=== PATIENT | female | born 1970 | race Caucasian/White ===

== ENCOUNTER 2020-01-17 11:25 | Emergency (ER) | payer OTHER, SELFPAY ==
[2020-01-17 11:36] VITALS: BP 104/76; PULSE 93; RESP 14; TEMP 36.8; O2SAT 100
--- NOTE | 2020-01-17 12:01 | ECG_ITS ---
Measurements Intervals [place] Rate: 81 P: 59 [place]: 130 QRS: 83 QRSD: 98 T: 63 QT: 407 QTc: 473 Interpretive Statements SINUS RHYTHM INCOMPLETE RIGHT BUNDLE BRANCH BLOCK BORDERLINE ECG Electronically Signed On 01-17-2020 13:12:52 CDT by Anthony Carey D.O.
--- NOTE | 2020-01-17 12:28 | ED_ITS ---
HPI - General Adult General Chief complaint: Anxiety Stated complaint: racing heart Time Seen by Provider: 01/17/20 12:28 Related Data Home Medications Medication Instructions Recorded Confirmed phenytoin sodium extended 400 mg PO DAILY 01/17/20 01/17/20 [Dilantin Extended] Allergies Allergy/AdvReac Type Severity Reaction Status Date / Time erythromycin base Allergy Unknown Unknown Verified 01/17/20 11:51 Sulfa (Sulfonamide Allergy Unknown Unknown Verified 01/17/20 11:51 Antibiotics) Course Vital Signs Vital signs: Vital Signs Temperature 36.8 C 01/17/20 11:36 Pulse Rate 93 01/17/20 11:36 Respiratory Rate 14 01/17/20 11:36 Blood Pressure 104/76 01/17/20 11:36 Pulse Oximetry 100 01/17/20 11:36 Temperature 36.8 C 01/17/20 11:36 Pulse Rate 93 01/17/20 11:36 Respiratory Rate 14 01/17/20 11:36 Blood Pressure 104/76 01/17/20 11:36 Pulse Oximetry 100 01/17/20 11:36 Medical Decision Making Vital Signs Vital Signs: Vital Signs Temperature 36.8 C 01/17/20 11:36 Pulse Rate 93 01/17/20 11:36 Respiratory Rate 14 01/17/20 11:36 Blood Pressure 104/76 01/17/20 11:36 Pulse Oximetry 100 01/17/20 11:36 Temperature 36.8 C 01/17/20 11:36 Pulse Rate 93 01/17/20 11:36 Respiratory Rate 14 01/17/20 11:36 Blood Pressure 104/76 01/17/20 11:36 Pulse Oximetry 100 01/17/20 11:36 ECG Data EKG #1: Prior ECG tracings: not available for review Interpretation: Intervals: RATE:81 [place]:130, QRSD:98 , QT: 407QTc: 473, [place]: P:59, R:83 , T: 63 Interpretive Statements: Sinus Rhythm with Right Bundle Branch Block Discharge Plan Discharge Prescriptions: No Action phenytoin sodium extended [Dilantin Extended] 100 mg Capsule 400 mg PO DAILY RF: 0
== END 2020-01-17 12:34 ==
LOC: EXPBETH 11:29
PROVIDERS: Emergency Provider Nurse Practitioner Family
DX: F41.9 Anxiety disorder, unspecified (principal); I45.10 Unspecified right bundle-branch block
CPT/HCPCS: 93005; 99199

== ENCOUNTER 2021-05-16 14:38 | Emergency (ER) | payer OTHER, SELFPAY ==
[2021-05-16 14:48] VITALS: BP 148/79; PULSE 90; RESP 18; TEMP 37.1; O2SAT 100
--- NOTE | 2021-05-16 15:17 | ED.GENADULT ---
HPI - General Adult General Chief complaint: Unspecified Stated complaint: Body shakes Time Seen by Provider: 05/16/21 15:23 Source: patient Mode of arrival: ambulatory Limitations: no limitations History of Present Illness HPI narrative: Samaria Frankel is a 51 yo female with a history of seizure disorder who comes to the [facility] with complaints of shakes. She has a current prescription for Dilantin and see has a private PCP appointment on 03/22. Related Data Home Medications Medication Instructions Recorded Confirmed phenytoin sodium extended 400 mg PO DAILY 01/17/20 05/16/21 [Dilantin Extended] Allergies Allergy/AdvReac Type Severity Reaction Status Date / Time erythromycin base Allergy Unknown Unknown Verified 05/16/21 14:52 Sulfa (Sulfonamide Allergy Unknown Unknown Verified 05/16/21 14:52 Antibiotics) Review of Systems Review of Systems: Narrative: CONSTITUTIONAL: Denies fever, chills, sweats. EYES: Denies visual changes, redness, discharge. ENT: Denies rhinorrhea, congestion, sore throat, otalgia. CARDIOVASCULAR: Denies chest pain, palpitations, edema. RESPIRATORY: Denies dyspnea, has wheezing, cough GASTROINTESTINAL: Denies abdominal pain, nausea, vomiting, diarrhea. GENITOURINARY: Denies dysuria, hematuria, abnormal discharge SKIN: Denies rash or itching. NEUROLOGIC: Denies numbness, or focal weakness. PSYCHIATRIC: Denies anxiety or depression. Generalized motor shakes that come and go PMFSH Past Medical History Medical History Seizure Wheezing Family History Family History Other No acute medical problems Social History Social History (Updated 05/16/21 @ 15:34 by Mary Ann Nixon CNP) Smoking packs per day: 1 Smoking cigarettes per day: 20.0 Smoking status: Current every day smoker Alcohol intake: never Comments At time of signature, I agree with nursing past medical, surgical, social and family history. There is no relevant family history pertinent to the presenting complaint. Pressure is elevated today at this visit she is a severe physician on Tuesday to talk to him about it then Exam Narrative: Exam Narrative: GENERAL: This is a well-nourished, well-developed patient, in mild distress. HEAD: normocephalic, atraumatic. EYES: P Sclera clear/white. Vision is grossly intact. EARS: External ears normal. Hearing grossly intact. NOSE: External nose normal without nasal discharge, nares without redness, no rhinorrhea. THROAT: Mucous membranes moist, NECK: Neck supple, non-tender CARDIOVASCULAR: Regular rate and rhythm without murmurs, gallops, or rubs. RESPIRATORY: Clear to auscultation. Breath sounds equal bilaterally. Has wheezes, rales, has rhonchi. GASTROINTESTINAL: Abdomen soft, SKIN: warm, intact with no suspicious lesions or rash, good texture and turgor. NEURO: awake, alert, and oriented to person, place and time. obvious focal neurologic abnormalities of bliateral hand shaking, denies response to stress. Steady gait EXTREMITIES: Normal range of motion. BACK: Nontender without deformity Course Course Emergency Course: Patient comes here for intermittent shaking that started almost a year ago and is just interfering with her life she has an appoint with her primary care physician Dr. Bergeron on Tuesday and I asked her to address this with him then in the meantime I will give her some muscle relaxants. She also has wheezing and rhonchi in her lungs general exam-stopping smoking and talk to Dr. Bergeron about this up while she is there, BP levated also Vital Signs Vital signs: Vital Signs Temperature 98.8 F 05/16/21 14:48 Pulse Rate 90 05/16/21 14:48 Respiratory Rate 18 05/16/21 14:48 Blood Pressure 148/79 H 05/16/21 14:48 Pulse Oximetry 100 05/16/21 14:48 Temperature 98.8 F 05/16/21 14:48 Pulse Rate 90 05/16/21 14:48 Respiratory Rate
== END 2021-05-16 15:55 | disposition home or self-care (01) ==
PROVIDERS: Emergency Provider Nurse Practitioner; PCP Internal Medicine
DX: R25.1 Tremor, unspecified (principal); R06.2 Wheezing; F17.210 Nicotine dependence, cigarettes, uncomplicated; G40.909 Epilepsy, unspecified, not intractable, without status epilepticus
CPT/HCPCS: 99213; G0463

== ENCOUNTER 2021-12-06 09:56 | Emergency (ER) | payer OTHER, SELFPAY ==
[2021-12-06 10:04] VITALS: BP 126/76; PULSE 82; RESP 14; TEMP 37.5; O2SAT 100
--- NOTE | 2021-12-06 10:52 | ED.GENADULT ---
HPI - General Adult General Chief complaint: Ear Stated complaint: Ear pain Source: patient Mode of arrival: ambulatory Limitations: no limitations History of Present Illness HPI narrative: Patient presents for evaluation of bilateral ear discomfort. She states she noted a tunneling noise in the left ear about one week ago, which has persisted since that time. She states that she developed similar symptoms in the right ear yesterday. She denies any pain per se. No tinnitus, hearing loss or drainage from the ears. No sore throat. She has a chronic mild nonproductive cough but attributes this to smoking. She has not tried any therapies to assist with her symptoms. No recent sick contacts. No personal history of COVID. She has not received COVID vaccination. No additional complaints or concerns. Related Data Home Medications Medication Instructions Recorded Confirmed phenytoin sodium extended 400 mg PO DAILY 01/17/20 12/06/21 [Dilantin Extended] Allergies Allergy/AdvReac Type Severity Reaction Status Date / Time erythromycin base Allergy Unknown Unknown Verified 12/06/21 10:30 Sulfa (Sulfonamide Allergy Unknown Unknown Verified 12/06/21 10:30 Antibiotics) Review of Systems Review of Systems: CONSTITUTIONAL: Denies fever, chills, or sweats. EYES: Denies visual changes, redness, or discharge. ENT: Reports tunneling noise in bilateral ears. Denies rhinorrhea, congestion, sore throat, or otalgia. CARDIOVASCULAR: Denies chest pain, palpitations, or edema. RESPIRATORY: Reports chronic mild nonproductive cough. Denies dyspnea. GASTROINTESTINAL: Denies abdominal pain, nausea, vomiting, or diarrhea. GENITOURINARY: Denies dysuria or hematuria. SKIN: Denies rash or itching. MUSCULOSKELETAL: Denies back pain, joint pain, or myalgia. NEUROLOGIC: Denies headache, numbness, dizziness, or weakness. PSYCHIATRIC: Denies anxiety or depression. [facility] Past Medical History Medical History (Updated 12/06/21 @ 11:00 by OSIEL Shah, JAN) Seizure Wheezing Surgical History Surgical History No pertinent past surgical history Family History Family History Other No acute medical problems Social History Social History Smoking packs per day: 1 Smoking cigarettes per day: 20.0 Smoking status: Current every day smoker Alcohol intake: never Substance use type: marijuana Gender identity (if verbalized by the patient): Female Spiritual care concerns: No Exam Narrative: GENERAL: Well-appearing, well-nourished, and in no acute distress. HEAD: Normocephalic, atraumatic. EYES: PERRLA and EOMI. ENT: Nares clear, no rhinorrhea or epistaxis. Mucous membranes moist. Oropharynx without tonsillar hypertrophy exudate or other lesions. Ear fluid present bilaterally. TM's are erythematous and bulging NECK: Supple. No adenopathy or masses. No carotid bruits or JVD CHEST: Clear to auscultation. No respiratory distress. No wheezes rales or rhonchi HEART: Regular rate and rhythm. No murmur heard. Normal peripheral pulses. ABDOMEN: Soft, nontender, nondistended, normal active bowel sounds. EXTREMITIES: Normal range of motion. No edema. SKIN: Warm, dry, no rash. NEURO: No focal deficits. Alert and oriented x3. PSYCH: Normal mood and affect. Course Course Emergency Course: This is a 51-year-old female who presents with discomfort in bilateral ears. She is a smoker and has some middle ear fluid likely from eustachian tube dysfunction. She does appear to have otitis media bilaterally. Will treat with augmentin and flonase. Plans to follow up outpatient for further evaluation and treatment and return for worsening symptoms. Pt in agreement with plan of care. Level of Care: Express Care Visit Vital Signs Vital signs: Vital Signs
== END 2021-12-06 11:15 | disposition home or self-care (01) ==
PROVIDERS: Emergency Provider Nurse Practitioner; PCP Internal Medicine
DX: H66.93 Otitis media, unspecified, bilateral (principal); F17.210 Nicotine dependence, cigarettes, uncomplicated; F12.90 Cannabis use, unspecified, uncomplicated; G40.909 Epilepsy, unspecified, not intractable, without status epilepticus
CPT/HCPCS: 99213; G0463

== ENCOUNTER 2022-02-18 08:16 | Emergency (ER) | payer OTHER, SELFPAY ==
[2022-02-18 08:22] VITALS: BP 118/76; PULSE 90; RESP 16; TEMP 37.2; O2SAT 100
--- NOTE | 2022-02-18 08:40 | ED.DENTAL ---
HPI - Dental/Oral General Chief complaint: Dental/Oral Stated complaint: infected tooth Time Seen by Provider: 02/18/22 08:43 Source: patient, RN notes reviewed and old records reviewed Mode of arrival: ambulatory Limitations: no limitations History of Present Illness HPI Narrative: 52-ugrn-pkay-old female who presents to [facility] with complaints of breaking her tooth off eating egg roll 4 days ago and now has dental pain and some swelling of her gum around the tooth. Patient reports that she has been taking Ibuprofen for her discomfort and also she took 4 doses of left over Amoxicillin she had at home. Patient reports that she does not have present dentist. Patient denies any facial swelling, no difficulty with her breathing or with swallowing. MD Complaint: tooth pain and tooth injury Location: Tooth # (#31) Onset (ago): day(s) (4) Severity scale (1-10): 6 Relieving factors: NSAIDs Related Data Home Medications Medication Instructions Recorded Confirmed phenytoin sodium extended 400 mg PO DAILY 01/17/20 02/18/22 [Dilantin Extended] Allergies Allergy/AdvReac Type Severity Reaction Status Date / Time erythromycin base Allergy Unknown Unknown Verified 02/18/22 08:37 Sulfa (Sulfonamide Allergy Unknown Unknown Verified 02/18/22 08:37 Antibiotics) Review of Systems Review of Systems: CONSTITUTIONAL: Denies fever, chills, or sweats. EYES: Denies visual changes, redness, or discharge. ENT: Denies rhinorrhea, congestion, sore throat, or otalgia.positive for dental pain CARDIOVASCULAR: Denies chest pain, palpitations, or edema. RESPIRATORY: Denies cough or dyspnea. GASTROINTESTINAL: Denies abdominal pain, nausea, vomiting, or diarrhea. GENITOURINARY: Denies dysuria or hematuria. SKIN: Denies rash or itching. MUSCULOSKELETAL: Denies back pain, joint pain, or myalgia. NEUROLOGIC: Denies headache, numbness, or weakness. PSYCHIATRIC: Denies anxiety or depression. All systems reviewed & are unremarkable except as noted in HPI and below PMFSH Past Medical History Medical History (Updated 02/19/22 @ 00:00 by Marc Dacricket) Seizure Wheezing Surgical History Surgical History (Updated 02/19/22 @ 08:14 by Anya Bowen NP) H/O removal of cyst left wrist No pertinent past surgical history Family History Family History Other No acute medical problems Social History Social History (Updated 02/19/22 @ 08:12 by Anya Bowen NP) Smoking packs per day: 1 Smoking cigarettes per day: 20.0 Smoking status: Current every day smoker Alcohol intake: current Alcohol use details: rare social Substance use type: does not use Living arrangements: with family Gender identity (if verbalized by the patient): Female Spiritual care concerns: No Comments At time of signature, agree with nursing past medical, surgical, social and family history. There is no relevant family history pertinent to the presenting complaint Exam Narrative: GENERAL: Well-appearing, fair-nourished, and in no acute distress. HEAD: Normocephalic, atraumatic. EYES: PERRLA and EOMI. ENT: Nares clear, no rhinorrhea or epistaxis. Mucous membranes moist.TM's normal with good light reflex, throat pink with no lesions or tonsil swelling, broken tooth #31 with some redness around gums, no trismus or facial swelling present or any Toño angina noted NECK: Supple.no lymphadenopathy CHEST: Clear to auscultation. No respiratory distress.SAO2 100% on room air HEART: Regular rate and rhythm. No murmur heard. Normal peripheral pulses. ABDOMEN: Soft, nontender, nondistended, normal active bowel sounds. EXTREMITIES: Normal range of motion. No edema. SKIN: Warm, dry, no rash. NEURO: No focal deficits. Alert and oriented x3. Course Course Level of Care: Express Care Visit Vital Signs Vital signs: Vital Signs Temperature 37.2 C 02/18/22 08:22 Pulse Rate 90
== END 2022-02-18 09:08 | disposition home or self-care (01) ==
PROVIDERS: Emergency Provider Registered Nurse
DX: S02.5XXA Fracture of tooth (traumatic), initial encounter for closed fracture (principal); X58.XXXA Exposure to other specified factors, initial encounter; K08.89 Other specified disorders of teeth and supporting structures; F17.210 Nicotine dependence, cigarettes, uncomplicated; G40.909 Epilepsy, unspecified, not intractable, without status epilepticus
CPT/HCPCS: 99213; G0463

== ENCOUNTER 2022-07-03 09:04 | Emergency (ER) | payer OTHER, SELFPAY ==
[2022-07-03 09:10] VITALS: BP 103/82; PULSE 95; RESP 20; TEMP 36.6; O2SAT 99
--- NOTE | 2022-07-03 09:43 | ED.EAR ---
HPI - Ear Problem General Chief complaint: Ear Stated complaint: ear pain Time Seen by Provider: 07/03/22 09:44 Source: patient, RN notes reviewed and old records reviewed Mode of arrival: ambulatory Limitations: no limitations History of Present Illness HPI Narrative: 52 year old female who presents to [facility] with decreased hearing from her left ear and ear pain for the past 5 days. Patient reports that she was seen in her PCP office and diagnosed with pneumonia on 06/28/2022 and has been taking docycycline and ompleted medrol dose pack. Patient states was told he had a lot of ear wax in left ear and used a wax removal kit with no improvement. Patient continues to have cough and congestion but states that has gotten better. Patient has long history of tobacco abuse. MD Complaint: ear pain and decreased hearing Location: left ear Treatment prior to arrival: attempt at ear wax removal (debrox) Related Data Home Medications Medication Instructions Recorded Confirmed phenytoin sodium extended 100 mg 400 mg PO DAILY 01/17/20 07/03/22 capsule (Dilantin Extended) albuterol sulfate 90 mcg/actuation 2 puff inhalation Q4-6H PRN 07/03/22 07/03/22 aerosol inhaler Shortness Of Breath Or Wheezing codeine 10 mg-guaifenesin 100 mg/5 5 ml PO Q8H PRN Cough 07/03/22 07/03/22 mL oral liquid doxycycline hyclate 100 mg capsule 100 mg PO BID 07/03/22 07/03/22 Allergies Allergy/AdvReac Type Severity Reaction Status Date / Time erythromycin base Allergy Unknown Unknown Verified 07/03/22 09:22 Sulfa (Sulfonamide Allergy Unknown Unknown Verified 07/03/22 09:22 Antibiotics) Review of Systems Review of Systems: CONSTITUTIONAL: Denies fever, chills, or sweats. EYES: Denies visual changes, redness, or discharge. ENT: Poitive rhinorrhea, congestion, no sore throat, positive for left otalgia. CARDIOVASCULAR: Denies chest pain, palpitations, or edema. RESPIRATORY: Positive for productive cough cough or dyspnea. GASTROINTESTINAL: Denies abdominal pain, nausea, vomiting, or diarrhea. GENITOURINARY: Denies dysuria or hematuria. SKIN: Denies rash or itching. MUSCULOSKELETAL: Denies back pain, joint pain, or myalgia. NEUROLOGIC: Denies headache, numbness, or weakness. PSYCHIATRIC: Denies anxiety or depression. All systems reviewed & are unremarkable except as noted in HPI and below PMFSH Past Medical History Medical History (Updated 07/07/22 @ 08:24 by Anya Bowen NP) Pneumonia Seizure Tobacco abuse Wheezing Surgical History Surgical History (Updated 02/19/22 @ 08:14 by Anya Bowen NP) H/O removal of cyst left wrist No pertinent past surgical history Family History Family History Other No acute medical problems Social History Social History (Updated 02/19/22 @ 08:12 by Anya Bowen NP) Smoking packs per day: 1 Smoking cigarettes per day: 20.0 Smoking status: Current every day smoker Alcohol intake: current Alcohol use details: rare social Substance use type: does not use Gender identity (if verbalized by the patient): Female Spiritual care concerns: No Comments At time of signature, agree with nursing past medical, surgical, social and family history. There is no relevant family history pertinent to the presenting complaint Exam Narrative: GENERAL: ill-appearing, fair-nourished, and in no acute distress. HEAD: Normocephalic, atraumatic. EYES: PERRLA and EOMI. ENT: Nares red with clear rhinorrhea no epistaxis. Mucous membranes moist.Left TM normal with ear canal red and swollen, right TM normal with no drainage, Throat red with no lesions or tonsil swelling, post nasal discharge NECK: Supple. no lymphadenopathy CHEST: Scattered wheezing on auscultation. No respiratory distress. productive cough SAO2 99% on room air HEART: Regular rate and rhythm. No murmur heard. Normal peripheral pulses. ABDOMEN: Soft, nontender, nondiste
== END 2022-07-03 10:00 | disposition home or self-care (01) ==
PROVIDERS: Emergency Provider Registered Nurse; PCP Internal Medicine
DX: H60.92 Unspecified otitis externa, left ear (principal); R06.2 Wheezing; F17.210 Nicotine dependence, cigarettes, uncomplicated; G40.909 Epilepsy, unspecified, not intractable, without status epilepticus
CPT/HCPCS: 99213; G0463

== ENCOUNTER 2023-06-11 11:30 | Emergency (ER) | payer OTHER, SELFPAY ==
[2023-06-11 11:38] VITALS: BP 113/63; PULSE 80; RESP 20; TEMP 37.7; O2SAT 100
--- NOTE | 2023-06-11 12:03 | ED.GENADULT ---
HPI - General Adult General Chief complaint: Ear Stated complaint: can't hear both ears Source: patient Mode of arrival: ambulatory Limitations: no limitations History of Present Illness HPI narrative: Patient presents for evaluation of bilateral ear pain for last 3 days. She has decreased hearing in both ears. She denies any tinnitus or drainage from the ears. She has some chronic sinus congestion, which is unchanged at the present time from her baseline. She denies any fever, chills, cough, sore throat. No recent sick contacts to her knowledge. She smokes approximately 1/4 ppd. Related Data Home Medications Medication Instructions Recorded Confirmed phenytoin sodium extended 100 mg 400 mg PO DAILY 01/17/20 06/11/23 capsule (Dilantin Extended) Allergies Allergy/AdvReac Type Severity Reaction Status Date / Time erythromycin base Allergy Unknown Unknown Verified 06/11/23 11:41 Sulfa (Sulfonamide Allergy Unknown Unknown Verified 06/11/23 11:41 Antibiotics) Review of Systems Review of Systems: CONSTITUTIONAL: Denies fever, chills, or sweats. EYES: Denies visual changes, redness, or discharge. ENT: Reports bilateral ear pain and hearing loss. Denies tinnitus and drainage from the ear. Reports sinus congestion which is chronic and currently unchanged from baseline. CARDIOVASCULAR: Denies chest pain, palpitations, or edema. RESPIRATORY: Denies cough or dyspnea. GASTROINTESTINAL: Denies abdominal pain, nausea, vomiting, or diarrhea. GENITOURINARY: Denies dysuria or hematuria. SKIN: Denies rash or itching. MUSCULOSKELETAL: Denies back pain, joint pain, or myalgia. NEUROLOGIC: Denies headache, numbness, dizziness, or weakness. PSYCHIATRIC: Denies anxiety or depression. [facility] Past Medical History Medical History Pneumonia Seizure Tobacco abuse Wheezing Surgical History Surgical History H/O removal of cyst left wrist No pertinent past surgical history Family History Family History Other No acute medical problems Social History Social History Smoking packs per day: 0.25 Smoking cigarettes per day: 5.0 Smoking status: Current every day smoker Alcohol intake: current Alcohol use details: rare social Substance use type: does not use Living arrangements: with family Gender identity (if verbalized by the patient): Female Spiritual care concerns: No Exam Narrative: GENERAL: Well-appearing, well-nourished, and in no acute distress. HEAD: Normocephalic, atraumatic. EYES: PERRLA and EOMI. ENT: Nares clear, no rhinorrhea or epistaxis. Mucous membranes moist. Oropharynx without tonsillar hypertrophy exudate or other lesions. Bilateral tympanic membrane erythema with visible air-fluid line. TMs are slightly bulging. There is some dried sanguinous drainage in right ear canal which obscures visualization of the right TM from 4-7 o'clock. Ear canals are erythematous NECK: Supple. No adenopathy or masses. No carotid bruits or JVD CHEST: Clear to auscultation. No respiratory distress. No wheezes rales or rhonchi HEART: Regular rate and rhythm. No murmur heard. Normal peripheral pulses. ABDOMEN: Soft, nontender, nondistended, normal active bowel sounds. EXTREMITIES: Normal range of motion. No edema. SKIN: Warm, dry, no rash. NEURO: No focal deficits. Alert and oriented x3. PSYCH: Normal mood and affect. Course Course Emergency Course: This is a 53-year-old female who presented for evaluation of bilateral ear pain. She has evidence of otitis media on exam. Will treat with Augmentin. I cannot fully visualize the tympanic membrane on the right from 4-7 o'clock. She does have some sanguinous drainage in the ear canal so may have ruptured TM. G
== END 2023-06-11 12:02 | disposition home or self-care (01) ==
PROVIDERS: Emergency Provider Nurse Practitioner; PCP Internal Medicine
DX: H66.93 Otitis media, unspecified, bilateral (principal); F17.210 Nicotine dependence, cigarettes, uncomplicated; G40.909 Epilepsy, unspecified, not intractable, without status epilepticus
CPT/HCPCS: 99213; G0463

== ENCOUNTER 2023-06-23 11:15 | Emergency (ER) | payer OTHER, SELFPAY ==
[2023-06-23 11:20] VITALS: BP 110/78; PULSE 80; RESP 16; TEMP 36.3; O2SAT 100
--- NOTE | 2023-06-23 11:22 | ED.EAR ---
HPI - Ear Problem General Chief complaint: Ear Stated complaint: Ear Problem Source: patient and RN notes reviewed History of Present Illness HPI Narrative: 53 yo F Presents to urgent care with complaints of right ear pain x 2 days. Pt is also reporting decreased hearing out of both ears that has been going on for quite some time. Pt was seen here 12 days ago and dx with AOM. Pt was given Augmentin and ofloxacin ear gtts at that time. Pt states her symptoms improved while she was on Abx but then the right ear began hurting recently. Denies any fevers, chills, congestion, or sore throat. Related Data Home Medications Medication Instructions Recorded Confirmed phenytoin sodium extended 100 mg 400 mg PO DAILY 01/17/20 06/23/23 capsule (Dilantin Extended) Allergies Allergy/AdvReac Type Severity Reaction Status Date / Time erythromycin base Allergy Unknown Unknown Verified 06/23/23 11:31 Sulfa (Sulfonamide Allergy Unknown Unknown Verified 06/23/23 11:31 Antibiotics) Review of Systems Review of Systems: CONSTITUTIONAL: Denies fever, chills, or sweats. EYES: Denies visual changes, redness, or discharge. ENT: Right ear pain CARDIOVASCULAR: Denies chest pain, palpitations, or edema. RESPIRATORY: Denies cough or dyspnea. GASTROINTESTINAL: Denies abdominal pain, nausea, vomiting, or diarrhea. GENITOURINARY: Denies dysuria or hematuria. SKIN: Denies rash or itching. MUSCULOSKELETAL: Denies back pain, joint pain, or myalgia. NEUROLOGIC: Denies headache, numbness, or weakness. Pertinent positives per HPI. [facility] Past Medical History Medical History Pneumonia Seizure Tobacco abuse Wheezing Surgical History Surgical History H/O removal of cyst left wrist No pertinent past surgical history Family History Family History Other No acute medical problems Social History Social History Smoking packs per day: 0.25 Smoking cigarettes per day: 5.0 Smoking status: Current every day smoker Alcohol intake: current Alcohol use details: rare social Substance use type: does not use Living arrangements: with family Gender identity (if verbalized by the patient): Female Spiritual care concerns: No Comments At the time of my signature, I reviewed and agree with the nursing past medical, surgical, social, and family history. There is no relevant family history pertinent to the patient complaint. Exam Narrative: GENERAL: This is a well-nourished, well-developed patient, in no apparent distress. HEAD: normocephalic, atraumatic. EYES: Sclera clear/white. Vision is grossly intact. EARS: External ears normal, auditory canals clear and without drainage. Right TM noted to be erythremic and slightly bulging. No drainage noted. NOSE: External nose normal with no obvious nasal discharge, nares without redness, no rhinorrhea. THROAT: Mucous membranes moist, posterior pharynx clear. NECK: Neck supple, non-tender without lymphadenopathy, masses or thyromegaly. CARDIOVASCULAR: Regular rate and rhythm without murmurs, gallops, or rubs. RESPIRATORY: No respiratory distress SKIN: warm, intact with no suspicious lesions or rash, good texture and turgor. NEURO: awake, alert, and oriented to person, place and time. There were no obvious focal neurologic abnormalities. Course Course Level of Care: Express Care Visit Vital Signs Vital signs: Vital Signs Temperature 97.4 F L 06/23/23 11:20 Pulse Rate 80 06/23/23 11:20 Respiratory Rate 16 06/23/23 11:20 Blood Pressure 110/78 06/23/23 11:20 Pulse Oximetry 100 06/23/23 11:20 Oxygen Delivery Room Air 06/23/23 11:20 Temperature 97.4 F L 06/23/23 11:20 Pulse Rate 80 06/23/23 11:20 Respiratory
== END 2023-06-23 11:44 | disposition home or self-care (01) ==
PROVIDERS: Emergency Provider Nurse Practitioner Family; PCP Internal Medicine
DX: H66.91 Otitis media, unspecified, right ear (principal); G40.909 Epilepsy, unspecified, not intractable, without status epilepticus; F17.210 Nicotine dependence, cigarettes, uncomplicated
CPT/HCPCS: 99213; G0463

== ENCOUNTER 2023-07-30 10:14 | Emergency (ER) | payer OTHER, SELFPAY ==
[2023-07-30 10:20] VITALS: BP 106/84; PULSE 81; RESP 18; TEMP 37; O2SAT 99
--- NOTE | 2023-07-30 10:23 | ED.EAR ---
HPI - Ear Problem General Chief complaint: Ear Stated complaint: Ear Pain Source: patient Mode of arrival: ambulatory Limitations: no limitations History of Present Illness HPI Narrative: 53 y/o female presented for c/o bilateral ear pressure. States right ear is worse. Endorses some sinus congestion. Denies pain, tinnitus, dizziness, n/v/d/f/c. Using Flonase spray. Hx ear infections last one 05/2023. MD Complaint: ear pain Related Data Home Medications Medication Instructions Recorded Confirmed phenytoin sodium extended 100 mg 400 mg PO DAILY 01/17/20 07/30/23 capsule (Dilantin Extended) Allergies Allergy/AdvReac Type Severity Reaction Status Date / Time erythromycin base Allergy Unknown Unknown Verified 06/23/23 11:31 Sulfa (Sulfonamide Allergy Unknown Unknown Verified 06/23/23 11:31 Antibiotics) Review of Systems Review of Systems: CONSTITUTIONAL: Denies malaise, chills, or fever. EYES: Denies visual changes, redness, or discharge. ENT: Denies sinus pain, and sore throat. Reports ear pressure CARDIOVASCULAR: Denies chest pain, palpitations, or edema. RESPIRATORY: Denies cough or dyspnea. GASTROINTESTINAL: Denies abdominal pain, nausea, vomiting, diarrhea SKIN: Denies rash or itching. MUSCULOSKELETAL: Denies myalgia. NEUROLOGIC: Denies headache. All systems reviewed & are unremarkable except as noted in HPI and below PMFSH Past Medical History Medical History Pneumonia Seizure Tobacco abuse Wheezing Surgical History Surgical History H/O removal of cyst left wrist No pertinent past surgical history Family History Family History Other No acute medical problems Social History Social History Smoking packs per day: 0.25 Smoking cigarettes per day: 5.0 Smoking status: Current every day smoker Alcohol intake: current Alcohol use details: rare social Substance use type: does not use Living arrangements: with family Gender identity (if verbalized by the patient): Female Spiritual care concerns: No Comments At time of signature, agree with nursing past medical, surgical, social and family history. There is no relevant family history pertinent to the presenting complaint Exam Narrative: GENERAL: Well-appearing, and in no acute distress. HEAD: Normocephalic EYES: PERRLA, conjunctivae clear ENT: Nares clear. Mucous membranes moist. Left TM pearly del angel with dull light reflex and clear effusion; Right TM erythematous with purulent effusion; no tragal tenderness. Oropharynx not erythematous without lesions. Tonsils not enlarged and without exudate, no drooling, no hoarseness, no trismus, uvula midline. NECK: Supple. No lymphadenopathy CHEST: Clear to auscultation, breath sounds equal. No wheezing, rhonchi, rales, or stridor. No respiratory distress, speaks in full sentences. HEART: Regular rate and rhythm. No murmur heard. SKIN: Warm, dry, no rash. NEURO: Alert and oriented x3. PSYCH: Normal mood and affect Course Course Emergency Course: Patient is aware of diagnosis, understands and agrees to treatment plan. Anticipatory guidance given. Patient agrees to follow-up as directed and is aware of reasons to seek care at the emergency department. Portions of this record may have been created with voice recognition software Level of Care: Express Care Visit Vital Signs Vital signs: Reviewed Medical Decision Making MDM Narrative Medical decision making narrative: Discussed physical exam findings. She states the last ear infection she was given Augmentin, but it did not help so she received Z--pack which did clear the infection. Will send zpack at this time, she is aware she may need to return if sx worsen. Advised supportive measures and signs/sympto
[2023-07-30 10:26] VITALS: BP 106/84; PULSE 81; RESP 18; TEMP 37; O2SAT 99
== END 2023-07-30 10:35 | disposition home or self-care (01) ==
PROVIDERS: Emergency Provider Nurse Practitioner Family; PCP Internal Medicine
DX: H66.93 Otitis media, unspecified, bilateral (principal); F17.210 Nicotine dependence, cigarettes, uncomplicated
CPT/HCPCS: 99213; G0463

== ENCOUNTER 2023-10-07 10:44 | Emergency (ER) | payer OTHER, SELFPAY ==
[2023-10-07 10:48] VITALS: BP 125/69; PULSE 87; RESP 16; TEMP 37.1; O2SAT 100
--- NOTE | 2023-10-07 11:17 | ED.URI ---
HPI - URI/Sore Throat General Chief Complaint: Upper Respiratory Infection Stated Complaint: Chest Congestion/Cough Time Seen by Provider: 10/07/23 11:20 Source: patient Mode of arrival: ambulatory Limitations: no limitations History of Present Illness HPI Narrative: 53-year-old female who presents to [facility] with complaints sinus congestion and drainage for the last few days which is yellowish green in color. She states she feels like the drainage is going into her chest now she is also having cough which most of the time she reports as being dry. Patient reports some headache discomfort but denies any body aches or any fevers or chlls. Patient reports history of some sinus problems and past ear infection. MD elicited complaint: cough, rhinorrhea, nasal congestion and other (headache) Pertinent past history: sinusitis and other (smoker) Onset (ago): day(s) (4) Severity: moderate Description of mucous: yellow and green Able to tolerate fluids by mouth: Yes Treatments prior to arrival: other (NYQuil and cough drops) Related Data Home Medications Medication Instructions Recorded Confirmed phenytoin sodium extended 100 mg 400 mg PO DAILY 01/17/20 10/07/23 capsule (Dilantin Extended) Allergies Allergy/AdvReac Type Severity Reaction Status Date / Time erythromycin base Allergy Unknown Unknown Verified 10/07/23 10:57 Sulfa (Sulfonamide Allergy Unknown Unknown Verified 10/07/23 10:57 Antibiotics) Review of Systems Review of Systems: CONSTITUTIONAL: Denies malaise, chills, sweats, or fever. EYES: Denies visual changes, redness, or discharge. ENT: Reports rhinorrhea, congestion, sinus pain,no otalgia and no sore throat. CARDIOVASCULAR: Denies chest pain, palpitations, or edema. RESPIRATORY: Reports productive cough.? Denies dyspnea. GASTROINTESTINAL: Denies abdominal pain, nausea, vomiting, diarrhea SKIN: Denies rash or itching. MUSCULOSKELETAL: Denies myalgia. NEUROLOGIC:Reports headache. All systems reviewed & are unremarkable except as noted in HPI and below PMFSH Past Medical History Medical History (Updated 10/08/23 @ 11:41 by Anya Bowen NP) Pneumonia Seizure Tobacco abuse Wheezing Surgical History Surgical History (Updated 10/08/23 @ 11:36 by Anya Bowen NP) H/O removal of cyst left wrist No pertinent past surgical history Tubal ligation status Family History Family History Other No acute medical problems Social History Social History (Updated 10/08/23 @ 11:38 by Anya Bowen NP) Smoking packs per day: 0.5 Smoking cigarettes per day: 10.0 Years smoked: 35 Smoking pack-years: 17.50 Smoking status: Current every day smoker Tobacco type: cigarettes Alcohol intake: former Alcohol use details: rare social Substance use type: does not use Living arrangements: with family Gender identity (if verbalized by the patient): Female Spiritual care concerns: No Comments At time of signature, agree with nursing past medical, surgical, social and family history. There is no relevant family history pertinent to the presenting complaint Exam Narrative: GENERAL: Well-appearing, well-nourished, thin,and in no acute distress. HEAD: Normocephalic EYES: PERRLA, conjunctivae clear ENT: Nares clear, turbinates edematous and erythematous, green yellow discharge. Mucous membranes moist. TM pearly del angel with dull light reflex bilaterally; no tragal tenderness. Oropharynx erythematous without lesions. Tonsils not enlarged and without exudate, no drooling, no hoarseness, no trismus, uvula midline.post nasal drainage NECK: Supple. No lymphadenopathy CHEST: Coarse to auscultation, breath sounds equal. No wheezing, rhonchi, rales, or stridor. No respiratory distress, speaks in full sentences.cough,SAO2 100% on room air HEART: Regular rate and rhythm. No murmur heard. SKIN: Warm,
== END 2023-10-07 11:42 | disposition home or self-care (01) ==
PROVIDERS: Emergency Provider Registered Nurse; PCP Internal Medicine
DX: J06.9 Acute upper respiratory infection, unspecified (principal); R05.1 Acute cough; F17.210 Nicotine dependence, cigarettes, uncomplicated
CPT/HCPCS: 99213; G0463

== ENCOUNTER 2024-01-15 09:25 | Emergency (ER) | payer OTHER, SELFPAY ==
[2024-01-15 09:30] VITALS: BP 118/77; PULSE 90; RESP 16; TEMP 36.6; O2SAT 100
--- NOTE | 2024-01-15 09:36 | ED.EAR ---
HPI - Ear Problem General Chief complaint: Ear Stated complaint: Ear Problem/Congestion History of Present Illness HPI Narrative: PATIENT PRESENTS WITH LEFT EAR PAIN. PATIENT DENIES ANY DRAINAGE FROM THE EAR STATES SHE FEELS IS FOR EAR IS MUFFLED HAS BEEN USING OFLOXACIN EAR DROPS WERE PRECEDED PREVIOUS EAR INFECTION. WITH MINIMAL RELIEF. Related Data Home Medications Medication Instructions Recorded Confirmed phenytoin sodium extended 100 mg 400 mg PO DAILY 01/17/20 10/07/23 capsule (Dilantin Extended) Allergies Allergy/AdvReac Type Severity Reaction Status Date / Time erythromycin base Allergy Unknown Unknown Verified 10/07/23 10:57 Sulfa (Sulfonamide Allergy Unknown Unknown Verified 10/07/23 10:57 Antibiotics) Review of Systems Review of Systems: CONSTITUTIONAL: DENIES CHILLS, OR SWEATS. REPORTS FEVER AND GENERALIZED BODY ACHES EYES: DENIES VISUAL CHANGES, REDNESS, OR DISCHARGE. ENT: DENIES OTALGIA. REPORTS NASAL CONGESTION RUNNY NOSE AND SORE THROAT CARDIOVASCULAR: DENIES CHEST PAIN, PALPITATIONS, OR EDEMA. RESPIRATORY: DENIES DYSPNEA. REPORTS OCCASIONAL COUGH GASTROINTESTINAL: DENIES ABDOMINAL PAIN, NAUSEA, VOMITING, OR DIARRHEA. GENITOURINARY: DENIES DYSURIA OR HEMATURIA. SKIN: DENIES RASH OR ITCHING. MUSCULOSKELETAL: DENIES BACK PAIN, JOINT PAIN, OR MYALGIA. REPORTS GENERALIZED BODY ACHES NEUROLOGIC: DENIES HEADACHE, NUMBNESS, OR WEAKNESS. PSYCHIATRIC: DENIES ANXIETY OR DEPRESSION. [facility] Past Medical History Medical History (Updated 01/15/24 @ 09:37 by OSIEL Payne) Pneumonia Seizure Tobacco abuse Wheezing Surgical History Surgical History (Updated 10/08/23 @ 11:36 by Anya Bowen NP) H/O removal of cyst left wrist No pertinent past surgical history Tubal ligation status Family History Family History Other No acute medical problems Social History Social History (Updated 10/08/23 @ 11:38 by Anya Bowen NP) Smoking packs per day: 0.5 Smoking cigarettes per day: 10.0 Years smoked: 35 Smoking pack-years: 17.50 Smoking status: Current every day smoker Tobacco type: cigarettes Alcohol intake: former Alcohol use details: rare social Substance use type: does not use Living arrangements: with family Gender identity (if verbalized by the patient): Female Spiritual care concerns: No Comments AT TIME OF SIGNATURE, AGREE WITH NURSING PAST MEDICAL, SURGICAL, SOCIAL AND FAMILY HISTORY. THERE IS NO RELEVANT FAMILY HISTORY PERTINENT TO THE PRESENTING COMPLAINT Exam Narrative: THE PATIENT IS A WELL-DEVELOPED, WELL-NOURISHED IN NO ACUTE DISTRESS. SKIN: SKIN IS WARM AND DRY WITHOUT ERYTHEMA, SWELLING OR EXUDATE. THERE IS GOOD TURGOR. NO TENTING. HEAD: ATRAUMATIC. NORMOCEPHALIC. NO TEMPORAL OR SCALP TENDERNESS. EYES: MOIST AND BRIGHT. SCLERA AND CONJUNCTIVAE NORMAL. NO DISCHARGE. PERRLA. EXTRAOCULAR MOTIONS INTACT. GROSS VISUAL ACUITY INTACT. EARS: PINNA IS NORMAL SHAPE AND CONTOUR. CLEAR EXTERNAL AUDITORY CANALS. RIGHT tM PEARLY DONG WITH GOOD CONE OF LIGHT, NO ERYTHEMA OR SUPPURATION. BILATERAL CERUMEN NOTED NO GROSS HEARING DEFICIT. LEFT TM BULGING WITH MODERATE ERYTHEMA TO CANAL NOSE: PINK, MOIST MUCOSA WITH GOOD AIR MOVEMENT. CLEAR RHINORRHEA WITHOUT NASAL FLARING. SEPTUM MIDLINE. MOUTH: MOIST MUCOUS MEMBRANES. THROAT; MILD ERYTHEMA NOTED TO POSTERIOR OROPHARYNX WITH MODERATE POSTNASAL DRAINAGE. WITHOUT EXUDATE OR ULCERATION.. UVULA MIDLINE. NORMAL MOVEMENT OF SOFT PALATE. NECK: SUPPLE AND NONTENDER WITH FULL RANGE OF MOTION WITHOUT DISCOMFORT. NO MENINGEAL SIGNS. LUNGS: EQUAL AND BILATERAL BREATH SOUNDS WITHOUT WHEEZES, RALES OR RHONCHI. CHEST: THE CHEST WALL IS WITHOUT RETRACTIONS OR USE OF ACCESSORY MUSCLES. HEART: HAS A REGULAR RATE AND RHYTHM WITHOUT MURMUR, GALLOPS, CLICK OR RUB. ABDOMEN: SOFT, NONTENDER WITH POSITIVE ACTIVE BOWEL SOUNDS. NO REBOUND TENDERNESS. EXTREMITIES
== END 2024-01-15 09:42 | disposition home or self-care (01) ==
PROVIDERS: Emergency Provider Nurse Practitioner Family; PCP Internal Medicine
DX: H66.92 Otitis media, unspecified, left ear (principal); F17.210 Nicotine dependence, cigarettes, uncomplicated; G40.909 Epilepsy, unspecified, not intractable, without status epilepticus
CPT/HCPCS: 99213; G0463

== ENCOUNTER 2024-03-08 08:14 | Emergency (ER) | payer SELFPAY ==
--- NOTE | 2024-03-08 08:16 | ED.EAR ---
HPI - Ear Problem General Chief complaint: Ear Stated complaint: Ears Time Seen by Provider: 03/08/24 08:16 Source: patient Mode of arrival: ambulatory Limitations: no limitations History of Present Illness HPI Narrative: Patient is a 53-year-old female who presents with right ear discomfort and muffled feeling. Patient has frequent ear infections. Patient uses daily allergy medicine. Has followed up with ENT in the past 6 months and was told to take allergy medication. MD Complaint: ear pain Related Data Home Medications Medication Instructions Recorded Confirmed phenytoin sodium extended 100 mg 400 mg PO DAILY 01/17/20 03/08/24 capsule (Dilantin Extended) Allergies Allergy/AdvReac Type Severity Reaction Status Date / Time erythromycin base Allergy Unknown Unknown Verified 03/08/24 08:25 Sulfa (Sulfonamide Allergy Unknown Unknown Verified 03/08/24 08:25 Antibiotics) Review of Systems Review of Systems: All systems reviewed & are unremarkable except as noted in HPI and below Constitutional: Constitutional: Denies body ache(s), Denies chills, Denies fever(s), Denies headache(s) and Denies malaise Eyes: Eyes: Denies blurry vision, Denies eye discharge and Denies irritation ENT: Reports otalgia, Denies headache(s), Reports hearing loss, Denies nasal congestion, Denies nasal discharge and Denies sore throat Cardiovascular: Cardiovascular: Denies chest pain, Denies edema, Denies palpitations and Denies dyspnea on exertion Respiratory: Respiratory: Denies cough and Denies dyspnea on exertion Gastrointestinal: Gastrointestinal: Denies abdominal pain, Denies diarrhea, Denies nausea and Denies vomiting Musculoskeletal: Musculoskeletal: Denies back pain, Denies arthralgias and Denies muscle weakness Integumentary/Breasts: Skin/Breast: Denies pruritus and Denies rash Neurologic: Denies headache(s) Psychiatric: Psychiatric: Reports no additional psychiatric complaints Endocrine: Endocrine: Denies palpitations PMFSH Past Medical History Medical History Pneumonia Seizure Tobacco abuse Wheezing Surgical History Surgical History H/O removal of cyst left wrist No pertinent past surgical history Tubal ligation status Family History Family History Other No acute medical problems Social History Social History Smoking packs per day: 0.5 Smoking cigarettes per day: 10.0 Years smoked: 35 Smoking pack-years: 17.50 Smoking status: Current every day smoker Tobacco type: cigarettes Alcohol intake: former Alcohol use details: rare social Substance use type: does not use Living arrangements: with family Gender identity (if verbalized by the patient): Female Spiritual care concerns: No Comments At time of signature, agree with nursing past medical, surgical, social and family history. There is no relevant family history pertinent to the presenting complaint? Exam Const: General: cooperative, healthy appearing, no acute distress and well nourished Nutritional Appearance: well nourished Orientation/consciousness: patient oriented x3 Limitations: no limitations HENMT: Head: normal to inspection, normocephalic and atraumatic Ears: hearing grossly normal bilaterally, TM normal on the left, EAC's normal, no periauricular adenopathy and TM abnormal bulging on the right and erythematous on the right Face/Nose/Sinus: Normal external nose present, Normal nares present, Normal nasal mucous membranes and turbinates present, No nasal discharge present, normal facial exam and sinuses nontender Face and sinus: normal facial exam and sinuses nontender Mouth: Yes Normal oral and palatal mucosa present, Yes lip normal, Yes tongue normal and Yes moist mucous membranes Throat:
[2024-03-08 08:20] VITALS: BP 111/62; PULSE 80; RESP 18; TEMP 36.8; O2SAT 100
[2024-03-08 08:26] VITALS: BP 111/62; PULSE 80; RESP 18; TEMP 36.8; O2SAT 100
== END 2024-03-08 08:35 | disposition home or self-care (01) ==
PROVIDERS: Emergency Provider Nurse Practitioner Family; PCP Internal Medicine
DX: H66.004 Acute suppurative otitis media without spontaneous rupture of ear drum, recurrent, right ear (principal); R56.9 Unspecified convulsions; Z79.899 Other long term (current) drug therapy; F17.210 Nicotine dependence, cigarettes, uncomplicated
CPT/HCPCS: 99213; G0463

== ENCOUNTER 2025-03-20 10:07 | Emergency (ER) | payer SELFPAY ==
[2025-03-20 10:15] VITALS: BP 130/76; PULSE 98; RESP 16; TEMP 37.1; O2SAT 98
--- NOTE | 2025-03-20 10:23 | ED.GENADULT ---
HPI - General Adult General Chief complaint: Ear Stated complaint: Ear Pain/Cough Source: patient Mode of arrival: ambulatory Limitations: no limitations History of Present Illness HPI narrative: 54-year-old female presented for complaint of right ear pain. Onset last night. Also reports cough for 2 weeks. Denies increasing shortness of breath, wheezing, nausea, vomiting, diarrhea, fevers or chills. Patient smokes half ppd. Related Data Home Medications ?Medication ?Instructions ?Recorded ?Confirmed ?Last Taken ?Type phenytoin sodium extended 100 mg 400 mg PO DAILY 01/17/20 03/08/24 Unknown History capsule (Dilantin Extended) Allergies Allergy/AdvReac Type Severity Reaction Status Date / Time erythromycin base Allergy Unknown Unknown Verified 03/20/25 10:16 Sulfa (Sulfonamide Allergy Unknown Unknown Verified 03/20/25 10:16 Antibiotics) Review of Systems Review of Systems: CONSTITUTIONAL: Denies body aches, fever, chills, or sweats. EYES: Denies visual changes, redness, or discharge. ENT: Denies rhinorrhea, congestion, sore throat, reports otalgia. CARDIOVASCULAR: Denies chest pain, palpitations, or edema. RESPIRATORY: Reports cough, denies sob, wheezing. GASTROINTESTINAL: Denies abdominal pain, nausea, vomiting, or diarrhea. SKIN: Denies rash MUSCULOSKELETAL: Denies back pain, joint pain, or myalgia. NEUROLOGIC: Denies headache All systems reviewed & are unremarkable except as noted in HPI and below PMFSH Past Medical History Medical History Tobacco abuse Pneumonia Wheezing Seizure Surgical History Surgical History Tubal ligation status H/O removal of cyst left wrist No pertinent past surgical history Family History Family History Other No acute medical problems Social History Social History Smoking packs per day: 0.5 Smoking cigarettes per day: 10.0 Years smoked: 35 Smoking pack-years: 17.50 Smoking status: Current every day smoker Tobacco type: cigarettes Alcohol intake: former Alcohol use details: rare social Substance use type: does not use Living arrangements: with family Gender identity (if verbalized by the patient): Female Spiritual care concerns: No Comments At time of signature, I have reviewed and agree with nursing past medical, surgical, social and family history unless otherwise noted. Please see nursing chart for further information. There is no relevant family history pertinent to the presenting complaint Exam Narrative: GENERAL: Well-appearing, in no acute distress. EYES: EOMI. No redness or drainage. Conjunctivae normal. ENT: Mucous membranes pink and moist. No rhinorrhea. Left TM normal Right TM erythematous, bulging and intact; canal not erythematous, no drainage. Throat normal. Uvula midline. NECK: Normal AROM. Supple. CHEST: No respiratory distress. Wheezing to right lower lobe HEART: Regular rate and rhythm. No murmur appreciated. ABDOMEN: Soft, nontender, nondistended, normal active bowel sounds. SKIN: Warm, dry, no rash. Capillary refill normal. Normal skin turgor. NEURO: Alert and oriented x3. Gait steady. PSYCH: Normal affect. Course Course Emergency Course: Patient is aware of diagnosis, understands and agrees to treatment plan. Anticipatory guidance given. Patient agrees to follow-up as directed and is aware of reasons to seek care at the emergency department. Portions of this record may have been created with voice recognition software Level of Care: Express Care Visit Vital Signs Vital signs: Vital Signs Temperature 98.8 F 03/20/25 10:15 Pulse Rate 98 03/20/25 10:15 Respiratory Rate 16 03/20/25 10:15 Blood Pressure 130/76 03/20/25 10:15 Pulse Oximetry 98 03/20/25 10:15 Oxygen Delivery Room Air 03/20/25 10:15 Temperature 98.8 F 03/20/25 10:15 Pulse Rate 98 03/20/25 10:15 Respiratory Rate 16 03/20/25 10:15 Blood Pressure 130/76 03/20/25 10:15 Pulse Oximetry 98 03/20/25 10:15 Oxygen Delivery Room Air 03/20/25 10:15 Medical Decision Making [facility] Narrative Medical decision making narrative: Discussed physical exam findings Consistent with bronchitis and right otitis media. reviewed prescriptions. Patient declined albuterol inhaler for financial reasons. Advised supportive measures and signs/symptoms to go to the ER. Pt is appropriate for outpt treatment and f/u. Differential Diagnosis Differential Diagnosis: Influenza, covid, sinusitis, OM, strep pharyngitis, URI, bronchitis, pneumonia Vital Signs Vital Signs: Vital Signs Temperature 98.8 F 03/20/25 10:15 Pulse Rate 98 03/20/25 10:15 Respiratory Rate 16 03/20/25 10:15 Blood Pressure 130/76 03/20/25 10:15 Pulse Oximetry 98 03/20/25 10:15 Oxygen Delivery Room Air 03/20/25 10:15 Temperature 98.8 F 03/20/25 10:15 Pulse Rate 98 03/20/25 10:15 Respiratory Rate 16 03/20/25 10:15 Blood Pressure 130/76 03/20/25 10:15 Pulse Oximetry 98 03/20/25 10:15 Oxygen Delivery Room Air 03/20/25 10:15 Discharge Plan Discharge Clinical Impression: Otitis media, Bronchitis Patient Disposition: Home Condition: Stable Instructions: Antibiotic Form, Acute Bronchitis (ED) Additional Instructions: Take antibiotics as directed. Over the counter Recommendations: antihistamine such as Benadryl, Zyrtec or Maryam for sinus congestion Tylenol 1000mg every 8 hours as needed to reduce fever, pain Cough syrup according to package directions Rest, fluids, and increase humidity of the air at home. Please schedule a follow-up visit with your personal physician for further evaluation and treatment within 3-5days. If your symptoms persist, change or worsen significantly, go to the emergency department for further evaluation. Patient Language: American Prescriptions: New prednisone 20 mg tablet 20 mg PO DAILY Qty: 5 0RF amoxicillin-pot clavulanate 875-125 mg tablet 1 tablet PO Q12H 7 Days Qty: 14 0RF No Action phenytoin sodium extended [Dilantin Extended] 100 mg Capsule 400 mg PO DAILY Follow-up/Referrals: Rubio,Newton Muñoz MD [Primary Care Provider] - Time of Disposition: 10:26
--- OUTSIDE RECORDS SUMMARY | 2025-03-20 10:41 | XMS_ITS | Clinical Summary ---
Author Organization [facility] Address [address] [place] [address] Phone Care Team Providers Care Co Founder And Director Name Role Phone Newton Bergeron MD Primary Care Provider Katheryn Sawyer APRN, DYER HELPER Unavailable [phone]- [phone] Allergies Active Allergy Reactions Criticality Noted Date Comments Erythromycin Unknown 05/27/2017 Sulfa Antibiotics Unknown 04/03/2016 Medications Multiple Vitamin (MULTIVITAMIN PO) Take by mouth. Active phenytoin (DILANTIN) 100 MG ER capsule Take 4 Capsules by mouth nightly. 360 Capsule 5 Active phenytoin (DILANTIN) 100 MG ER capsule Take 4 Capsules by mouth nightly. 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 Resolved Problems Problem Noted Date Diagnosed Date Resolved Date GERD without esophagitis 09/15/2021 Primary insomnia 06/05/2021 07/14/2023 Encounters Date Type Department Care Team Description 03/05/2025 [facility] - [place] [address] [place] [id number] Katheryn Sawyer APRN, DYER HELPER 12/24/2024 [facility] [place] [address] [place] [address] Katheryn Sawyer, LITURGICAL MUSIC DIRECTOR, DYER HELPER from Last 3 Months Family History Medical History Relation Name Comments No Known Problems Father Heart Attack Mother Hypertension Mother Stroke Mother Relation Name Status Comments Father Alive Mother Alive Social History Tobacco Use Types Packs/Day Years Used Date Smoking Tobacco: Every Day Cigarettes Passive Smoke Exposure: Current Smokeless Tobacco: Never Tobacco Cessation:Ready to Q uit: Not Asked; Counseling Given: Not Answered Alcohol Use Standard Drinks/Week Comments No 0 (1 standard drink = 0.6 oz pur e alcohol) [facility] Utilities Answer Date Recorded In the past 12 months has e electric, gas, oil, or water company threatened to shut off services in your home? No 01/12/2024 Social Connection and Isolat ion Panel [NHANES] Answer Date Recorded In a typical week, how many times do you talk on the phone with family, friends, or neighbors? More than three times a week 01/12/2024 How often do you get togethe r with friends or relatives? More than three times a week 01/12/2024 How often do you attend chur ch or jainism services? Never 01/12/2024 Do you belong to any clubs o r organizations such as cheondoism groups, unions, fraternal or athletic groups, or school groups? No 01/12/2024 How often do you attend meet ings of the clubs or organizations you belong to? Never 01/12/2024 Are you , , di vorced, , never , or living with a partner? 01/12/2024 AUDIT-C Answer Date Recorded Q1: How often do you have a drink containing alcohol? Never 01/12/2024 Q2: How many drinks containi ng alcohol do you have on a typical day when you are drinking? Patient does not drink Q3: How often do you have si x or more drinks on one occasion? Never 01/12/2024 Overall Financial Resource Strain (CARDIA) Answe r Date Recorded How hard is it for you to pa y for the very basics like food, housing, medical care, and heating? Not hard at all 01/12/2024 PHQ-2 Answer Date Recorded Total Score - Questions 1-9 0 12/29 [facility] - Occupational Stress Questionnaire Answer Date Recorded Do you feel stress - tense, restless, nervous, or anxious, or unable to sleep at night because your mind is troubled all the time - these days? Not at all 01/12/2024 Exercise Vital Sign Answer Date Recorde d On average, how many days pe r week do you engage in moderate to strenuous exercise (like a brisk walk)? 0 days 01/12/2024 On average, how many minutes do you engage in exercise at this level? 0 min 01/12/2024 Hunger Vital Sign Answer Date Recorded Within the past 12 months, y ou worried that your food would run out before you got the money to buy more. Never true 01/12/20 24 Within the past 12 months, t he food you bought just didn't last and you didn't have money to get more. Never true 01/12/2024 PRAPARE - Transportation Answer Date Re corded In the past 12 months, has l ack of transportation kept you from medical appointments or from getting medications? No 12/29 In the past 12 months, has l ack of transportation kept you from meetings, work, or from getting things needed for daily living? No 01/12/2024 Housing Stability Vital Sign Answer Freddy e Recorded In the last 12 months, was t here a time when you were not able to pay the mortgage or rent on time? No 01/12/2024 In the last 12 months, how many places have you lived? 2 01/12/2024 In the last 12 months, was t here a time when you did not have a steady place to sleep or slept in a jail (including now)? No 01/12/2024 Education Answer Date Recorded What is the highest level of school you have completed or the highest degree you have received? Bachelor's degree (e.g., BA, AB, BS) 07/14/2023 Sexually Active Control Partners Comments Not Currently Comments No Sex and Gender Information Value Date Recorded Sex Assigned at Not on file Legal Sex Female 12:20 AM CDT Gender Identity Not on file Sexual Orientation Not on file Last Filed Vital Signs Vital Sign Reading Time Taken Comments Blood Pressure 106/62 01/12/2024 9:08 AM CDT Pulse 82 01/12/2024 9:08 AM CDT Temperature 36.3 C (97.4 F) 01/12/2024 9:08 AM CDT Respiratory Rate 18 11/16/2023 9:18 AM EMAIL PRODUCER Oxygen Saturation 98% 01/12/2024 9:08 AM CDT Inhaled Oxygen Concentration - - Weight 52.2 kg (115 lb) 01/12/2024 9:08 AM CDT Height 170.2 cm (5' 7 ) 01/12/2024 9:08 AM CDT Body Mass Index 18.01 01/12/2024 9:08 AM CDT Plan of Treatment Upcoming Encounters Date Type Department Care Team (Late st Contact Info) Description 05/24/2025 8:00 AM CDT Office Visit [facility] - Neurology - [place] [address] [place] [address] Katheryn Sawyer APRN, DYER HELPER [address] [place] [address] Health Maintenance Due Date Last Done Comments Hepatitis C Virus (HCV) Screening 1970 Hepatitis B Immunization (1 of 3 - 19+ 3-dose series) 1989 Pneumococcal Immunization (5 0+ years) (1 of 2 - PCV) 1989 Pap Smear 1991 Cervical Cancer Screening (CCS) 2000 HPV/Cotest 2000 Colonoscopy 2015 Colorectal Cancer Screening 2015 Cologuard 2020 Immunochemical Fecal Occult Blood 2020 Zoster Immunization (1 of 2) 2020 SARS-COV-2 Immunization ( - season) 2024 Mammogram 01/31/2025 02/01/2024, 10/29/2021 Respiratory Syncytial Virus (RSV) Immunization (Adult) (1 - 1-dose 75+ series) 2045 DTaP/Tdap/Td Immunization Discontinued 2014, 10/31/2002 TdaP Immunization Completed 04/21/2015, 10/31/2002 Discussion re Starting/Frequency of Mammograms Discontinued 02/01/2024, 10/29/2021 Human Papillomavirus (HPV) Immunization Aged Out No longer eligible based on patient's age to complete this topic Influenza Immunization Discontinued Meningococcal Immunization (ACWY) Aged Out No longer eligible based on patient's age to complete this topic Rotavirus Immunization Aged Out No lo nger eligible based on patient's age to complete this topic Procedures Procedure Name Priority Date/Time Associated Diagnosis Comments MAXIMINO SCREENING BILATERAL DIGITAL W CAD W COREY Routine 02/01/2024 10:03 AM CDT Breast cancer screening by mammogram from Last 3 Months or Most Recently Relevant to Health Maintenance Results * MAXIMINO SCREENING BILATERAL DIGITAL W CAD W COREY (02/01/2024 10:03 AM CDT) Anatomical Region Laterality Modality breast Bilateral Mammography 02/01/2024 9:57 AM CDT Narrative 02/01/2024 2:39 PM CDT - MAXIMINO SCREENING BILATERAL DIGITAL W CAD W COREY BILATERAL DIGITAL SCREENING MAMMOGRAM 3D/2D WITH CAD WITH MEDIOLATERAL OBLIQUE CRANIOCAUDAL: 02/01/2024 The study was acquired using digital technology and interpreted from soft copy. Current study was also evaluated with ICAD version 7.2. 2D digital mammographic views, as well as 3D digital tomosynthesis were performed in the CC and MLO projections. CLINICAL: Routine screening. Patient has no complaints. No personal history of cancer. No family history of breast cancer. COMPARISONS: Comparison is made to exam dated: 10/29/2021 [facility]. BREAST TISSUE:The tissue of both breasts is extremely dense, which lowers the sensitivity of mammography. FINDINGS: No significant masses, calcifications, or other findings are seen in either breast. There has been no significant interval change. IMPRESSION: BI-RAD 1 NEGATIVE There is no mammographic evidence of malignancy. A 1 year screening mammogram is recommended. A letter will be sent to the patient with these results. The patient will be entered into a reminder system with a target due date of 1 year for her next screening exam. Electronically signed by: Fitz dillon/rojas:02/01/2024 13:32:04 Refuge Manager(s): RT Myriam(R)(M), [facility] letter sent: Normal Exam Reading location: MCENAL BI-RADS: 1 Negative Procedure Note Fitz James MD - 02/01/2024 - MAXIMINO SCREENING BILATERAL DIGITAL W CAD W COREY BILATERAL DIGITAL SCREENING MAMMOGRAM 3D/2D WITH CAD WITH MEDIOLATERAL OBLIQUE CRANIOCAUDAL: 02/01/2024 The study was acquired using digital technology and interpreted from soft copy. Current study was also evaluated with ICAD version 7.2. 2D digital mammographic views, as well as 3D digital tomosynthesis were performed in the CC and MLO projections. CLINICAL: Routine screening. Patient has no complaints. No personal history of cancer. No family history of breast cancer. COMPARISONS: Comparison is made to exam dated: 10/29/2021 [facility]. BREAST TISSUE:The tissue of both breasts is extremely dense, which lowers the sensitivity of mammography. FINDINGS: No significant masses, calcifications, or other findings are seen in either breast. There has been no significant interval change. IMPRESSION: BI-RAD 1 NEGATIVE There is no mammographic evidence of malignancy. A 1 year screening mammogram is recommended. A letter will be sent to the patient with these results. The patient will be entered into a reminder system with a target due date of 1 year for her next screening exam. Electronically signed by: Fitz dillon/rojas:02/01/2024 13:32:04 Refuge Manager(s): RT Myriam(R)(M), [facility] letter sent: Normal Exam Reading location: MCNEAL BI-RADS: 1 Negative us Newton Bergeron MD IMG MAMMO ORDERABLES Final Result from Last 3 Months or Most Recently Relevant to Health Maintenance Care Teams Co Founder And Director Relationship Specialty Start Date End Date Newton Bergeron MD [address] [place] [address] PCP - General Internal Medicine 06/17/21 Katheryn Sawyer, LITURGICAL MUSIC DIRECTOR, DYER HELPER [address] [place] [address] Nurse Practitioner Advanced Practice Nurse 11/16/23
--- OUTSIDE RECORDS SUMMARY | 2025-03-20 10:41 | XMS_ITS | Encounter Summary ---
Author Organization [facility] Address [address] [place] [address] Phone Care Team Providers Care Cabin Man Name Role Phone Newton Bergeron MD Primary Care Provider [phone] [phone] Katheryn Sawyer APRN, TOY CONSULTANT Unavailable +1- [phone] Reason for Visit * Reason Comments Medication Refill Encounter Details Date Type Department Care Team (Late st Contact Info) Description 03/15/2024 Refill [facility] - Neurology - [place] [address] [place] [address] Katheryn Sawyer APRN, TOY CONSULTANT [address] [place] [address] Medication Refill Social History Tobacco Use Types Packs/Day Years Used Date Smoking Tobacco: Every Day Cigarettes Passive Smoke Exposure: Current Smokeless Tobacco: Never Alcohol Use Standard Drinks/Week Comments No 0 (1 standard drink = 0.6 oz pur e alcohol) [facility] Utilities Answer Date Recorded In the past 12 months has [employer], gas, oil, or water [employer] threatened to shut off services in your [...] often do you attend chur ch or caodaism services? Never 01/12/2024 Do you belong to any clubs o r organizations such as faith groups, unions, fraternal or athletic groups, or [...] Total Score - Questions 1-9 0 12/29 [facility] of Occupat ional Health - Occupational Stress [...] place to sleep or slept in a group home (including now)? No 01/12/2024 Education Answer Date [...] on file Sexual Orientation Not on file documented as of this encounter Miscellaneous Notes * Telephone Encounter - Shefali Gayle RN - 03/19/2024 8:40 AM CDT Medication failed the protocol, provider to review and approve the medication order if appropriate. Requested Prescriptions Pending Prescriptions Disp Refills phenytoin (DILANTIN) 100 MG ER capsule [Pharmacy Med Name: Phenytoin Sodium Extended 100 MG Oral Capsule] 270 Capsule 0 Sig: Take 4 Capsules by mouth nightly. Not Delegated - Anticonvulsants Excluding Benzodiazepines Protocol Failed - 03/15/2024 9:32 AM Failed - This refill cannot be delegated Passed - Visit with relevant provider in past 12 months or upcoming 90 days Recent Visits Date Type Provider Dept 01/12/24 Office Visit Newton Bergeron MD [facility] [place] 11/16/23 Office Visit Katheryn Sawyer APRN, TOY CONSULTANT [facility] 07/14/23 [facility] [place] [facility] recent visits within past 365 days and meeting all other requirements Future Appointments Date Type Provider Dept 05/17/24 Appointment Katheryn Sawyer APRN, DAISY [facility] [place] Showing future appointments within next 90 days and meeting all other requirements documented in this encounter Plan of Treatment Upcoming Encounters Date Type Department Care Team (Late st Contact Info) Description 05/24/2025 8:00 AM CDT [facility] [place] [address] [place] [address] Katheryn Sawyer APRN, DAISY [address] [place] [address] documented as of this encounter Visit Diagnoses Not on filedocumented in this encounter Additional Health Concerns Assessment Noted Time PHQ-9 Depression Total Score: 0 01/12/20 9:12 AM CDT documented as of this encounter Care Teams Cabin Man Relationship Specialty Start Date End Date Newton Bergeron MD [address] [place] [address] PCP - General Internal Medicine 06/17/21 Katheryn Sawyer APRN, CNS [address] [place] [address] Nurse Practitioner Advanced Practice Nurse 11/16/23 documented as of this encounter
--- OUTSIDE RECORDS SUMMARY | 2025-03-20 10:41 | XMS_ITS | Encounter Summary ---
Author Organization [facility] Address [facility] [place] [address] Care Team Providers Care Physical Geographer Name Role Phone Trudy Tam MD Primary Care Provider [phone] [phone] Encounter Details Date Type Department Care Team (Late st Contact Info) Description 10/22/2019 Telephone [facility] [address] [place] [address] Evelin King MD [address] [address] Social History Tobacco Use Types Packs/Day Years Used Date Smoking Tobacco: Some Days Cigarettes Smokeless Tobacco: Never Alcohol Use Standard Drinks/Week Comments Yes 0 (1 standard drink = 0.6 oz pur e alcohol) VERY SELDOM USE Comments No Sex and Gender Information Value Date Recorded Sex Assigned at Not on file Legal Sex Female 5:24 PM [employer] FARM[employer] Gender Identity Not on file Sexual Orientation Not on file documented as of this encounter Plan of Treatment Not on file documented as of this encounter Visit Diagnoses Not on filedocumented in this encounter Care Teams Physical Geographer Relationship Specialty Start Date End Date Trudy Tam MD PCP - General 02/09/16 documented as of this encounter
--- OUTSIDE RECORDS SUMMARY | 2025-03-20 10:41 | XMS_ITS | Referral Summary ---
Author Organization [facility] Address [address] [place] [address] Care Team Providers Care Diabetes Solutions Specialist Name Role Phone Newton Bergeron MD Primary Care Provider +1- [phone] Allergies Active Allergy Reactions Criticality Noted Date Comments Erythromycin Sulfa (Sulfonamide Antibiotics) Medications phenytoin ER (DILANTIN) 100 mg ER capsule TAKE FOUR CAPSULES BY MOUTH ONCE DAILY AT NIGHT 08/21/20 18 Active traMADol (ULTRAM) 50 mg tablet Take 1 tablet (50 mg total) by mouth every 6 (six) hours as needed for pain 20 tablet 02/16/20 19 Active Additional Information Patient not taking.Reported on 03/27/2020 ondansetron ODT (ZOFRAN-ODT) 4 mg disintegrating tablet Dissolve 1 tablet oral every 4 hours as needed for nausea or vomiting. 15 tablet 02/16/20 19 Active Additional Information Patient not taking.Reported on 03/27/2020 naproxen (NAPROSYN) 500 mg tablet Take 1 tablet (500 mg total) by mouth 2 (two) times a day with meals 14 tablet 02/18/20 19 Active Additional Information Patient not taking.Reported on 03/27/2020 Active Problems Problem Noted Date Diagnosed Date Bilateral hearing loss 11/08/2023 Assessment & Plan (11/08/2023 3:41 PM FORESTRY AID): Hearing test Mild to moderate hearing loss, Protect hearing, consider hearing aids Social History Tobacco Use Types Packs/Day Years Used Date Smoking Tobacco: Every Day Smokeless Tobacco: Never Alcohol Use Standard Drinks/Week Comments Never 0 (1 standard drink = 0.6 oz pur e alcohol) AUDIT-C Answer Date Recorded Frequency of Alcohol Consumption Never 03/27/2020 Average Number of Drinks Not on file 020 Frequency of Binge Drinking Not on file 03/01 Personal Safety Answer Date Recorded Getting School Help Needed Not on file 10/17 Comments No Sex and Gender Information Value Date Recorded Sex Assigned at Not on file Legal Sex Female 11:51 PM FORESTRY AID Gender Identity Not on file Sexual Orientation Not on file Last Filed Vital Signs Vital Sign Reading Time Taken Comments Blood Pressure 104/64 11/07/2023 10:38 AM FORESTRY AID Pulse 80 11/07/2023 10:38 AM FORESTRY AID Temperature 36.4 C (97.6 F) 11/07/2023 10:38 AM FORESTRY AID Respiratory Rate 16 12/27/2022 12:09 PM FORESTRY AID Oxygen Saturation 99% 11/07/2023 10:38 AM FORESTRY AID Inhaled Oxygen Concentration - - Weight 50.4 kg (111 lb 1.6 oz) 11/07/2023 10:38 AM FORESTRY AID Height 170.2 cm (5' 7.01 ) 11/07/2023 10:[address] Body Mass Index 17.4 11/07/2023 10:38 AM FORESTRY AID Plan of Treatment Not on file Insurance AETNA [facility] AETNA [facility] Care Teams Diabetes Solutions Specialist Relationship Specialty Start Date End Date Newton Bergeron MD [address] [place] [address] PCP - General 06/27/22
--- OUTSIDE RECORDS SUMMARY | 2025-03-20 10:41 | XMS_ITS | Clinical Summary ---
Author Organization [facility] Address [address] [place] [address] Care Team Providers Care Route Salesman And Driver Name Role Phone Newton Bergeron MD Primary Care Provider +1- [phone] Allergies Active Allergy Reactions Criticality Noted Date [...] 11/08/2023 Assessment & Plan (11/08/2023 3:41 PM PRINT PRODUCTION COORDINATOR): Hearing test Mild to moderate hearing loss, Protect hearing, consider hearing aids Surgical History Surgery Date Site/Laterality Comments DILATION AND CURETTAGE OF UTERUS Medical History Medical History Date Comments Seizures (HCC) Social History Tobacco Use Types Packs/Day Years [...] on file Legal Sex Female 11:51 PM PRINT PRODUCTION COORDINATOR Gender Identity Not on file Sexual Orientation Not on file Obstetrics History Last Filed Vital Signs Vital Sign Reading Time Taken Comments Blood Pressure 104/64 11/07/2023 10:38 AM PRINT PRODUCTION COORDINATOR Pulse 80 11/07/2023 10:38 AM PRINT PRODUCTION COORDINATOR Temperature 36.4 C (97.6 F) 11/07/2023 10:38 AM PRINT PRODUCTION COORDINATOR Respiratory Rate 16 12/27/2022 12:09 PM PRINT PRODUCTION COORDINATOR Oxygen Saturation 99% 11/07/2023 10:38 AM PRINT PRODUCTION COORDINATOR Inhaled Oxygen Concentration - - Weight 50.4 kg (111 lb 1.6 oz) 11/07/2023 10:38 AM PRINT PRODUCTION COORDINATOR Height 170.2 cm (5' 7.01 ) 11/07/2023 10:[address] Body Mass Index 17.4 11/07/2023 10:38 AM PRINT PRODUCTION COORDINATOR Plan of Treatment Health Maintenance Due Date Last Done Comments Cervical Cancer Screening 1970 Colon Cancer Screening-Colonoscopy 1970 Depression Screening 1970 Hepatitis C Screening 1970 Hepatitis B Screening 1988 Regular Well Visit/Exam 18-64 1988 Pneumococcal vaccine <65 (1 of 2 - PCV) 1989 Zoster Vaccine (1 of 2) 2020 Breast Cancer Screening-Mammogram 10/29/2022 021 Influenza Vaccine (#1) 2024 DTaP/Tdap/Td Vaccine (3 - Td or Tdap) 04/21/2025, 10/31/2002 Insurance [place] Care Teams Route Salesman And Driver Relationship Specialty Start Date End Date Newton Bergeron MD [address] [place] [address] PCP - General 06/27/22
--- OUTSIDE RECORDS SUMMARY | 2025-03-20 10:41 | XMS_ITS | Clinical Summary ---
Author Organization [facility] Address [address] [place] [address] Care Team Providers Care Projection Technician Name Role Phone Trudy Tam MD Primary Care Provider [phone] [phone] Source Comments [facility],non-owned Affiliates and Associated Physician Practices is amultiple site organization consisting of ambulatory clinics and hospital sitesin [place], [place] and [place]. This disclosure is being madepursuant to the Care Everywhere program and may not contain all information available regarding this patient. Last updated 18.[facility] Allergies Active Allergy Reactions Criticality Noted Date Comments Erythromycin Unknown 05/27/2017 Sulfa Drugs Nausea and/or Vomiting Low 04/23/2016 Medications * Be aware that medications may not be up to date on this document. Alwaysverify current medications with the patient. ibuprofen (MOTRIN) 200 MG tablet Take by mouth every 6 hours as needed for Pain Active B Complex-Biotin- FA (B-50 COMPLEX PO) Active phenytoin ER (Dilantin) 100 MG capsule TAKE 4 CAPSULES BY MOUTH AT BEDTIME 120 capsule 3 04/19/2023 Active Active Problems Problem Noted Date Diagnosed Date Convulsions 04/23/2016 Social History Tobacco Use Types Packs/Day Years Used Date Smoking Tobacco: Some Days Cigarettes Smokeless Tobacco: Never Alcohol Use Standard Drinks/Week Comments Yes 0 (1 standard drink = 0.6 oz pur e alcohol) VERY SELDOM USE Comments No Sex and Gender Information Value Date Recorded Sex Assigned at Not on file Legal Sex Female 5:24 PM HYDROELECTRIC STATION OPERATOR Gender Identity Not on file Sexual Orientation Not on file Last Filed Vital Signs Vital Sign Reading Time Taken Comments Blood Pressure 110/78 02/16/2018 10:58 AM CDT Pulse 67 02/16/2018 10:58 AM CDT Temperature 36.8 C (98.2 F) 02/16/2018 10:58 AM CDT Respiratory Rate - - Oxygen Saturation 99% 02/16/2018 10:58 AM CDT Inhaled Oxygen Concentration - - Weight 51.7 kg (114 lb) 02/16/2018 10:58 AM CDT Height 170.2 cm (5' 7 ) 02/16/2018 10:58 AM CDT Body Mass Index 17.85 02/16/2018 10:58 AM CDT Plan of Treatment Health Maintenance Due Date Last Done Comments COLOGUARD (AGES 45-75) - COL ON CA SCREENING 1970 COLON MONITORING 1970 COLONOSCOPY - COLON CA SCREENING 1970 CT COLONOGRAPHY - COLON CA SCREENING 1970 Colorectal Cancer Screening 1970 FIT - COLON CA SCREENING 1970 FLEX SIG - COLON CA SCREENING 1970 LIPID TESTING 1970 MAMMOGRAM 1970 PAP SMEAR 1970 HIV SCREENING 1985 HEPATITIS C SCREENING 03/26/1988 DTAP/TDAP/TD VACCINES (1 - Tdap) 1989 HEPATITIS B VACCINE (1 of 3 - 19+ 3-dose series) 1989 PNEUMOCOCCAL VACCINE 50+ (1 of 2 - PCV) 1989 ZOSTER VACCINE (1 of 2) 2020 COVID-19 VACCINE (1 - 2023-2 5 season) 2024 DEPRESSION SCREENING 10/31/2024 INFLUENZA VACCINE (Season Ended) 2025 HIB VACCINE Aged Out No longer eligi ble based on patient's age to complete this topic HPV VACCINE Aged Out No longer eligi ble based on patient's age to complete this topic MENINGOCOCCAL (Group B) VACC INE SHARED DECISION-MAKING Aged Out No longer eligibl e based on patient's age to complete this topic MENINGOCOCCAL GROUPS A/C/Y/W VACCINE Aged Out No longer eligible b ased on patient's age to complete this topic Care Teams Projection Technician Relationship Specialty Start Date End Date Trudy Tam MD [facility] - General 02/09/16
== END 2025-03-20 10:29 | disposition home or self-care (01) ==
PROVIDERS: Emergency Provider Nurse Practitioner Family; PCP Internal Medicine
DX: H66.91 Otitis media, unspecified, right ear (principal); J40 Bronchitis, not specified as acute or chronic; F17.210 Nicotine dependence, cigarettes, uncomplicated; G40.909 Epilepsy, unspecified, not intractable, without status epilepticus
CPT/HCPCS: 99213; G0463

== ENCOUNTER 2025-08-20 12:26 | Emergency (ER) | payer SELFPAY ==
[2025-08-20 12:35] VITALS: BP 96/69; PULSE 81; RESP 18; TEMP 36.7; O2SAT 98
--- NOTE | 2025-08-20 13:58 | ED.GENADULT ---
HPI - General Adult General Chief complaint: Skin/Abscess/Foreign Body Stated complaint: lump over left ear Source: patient Mode of arrival: ambulatory Limitations: no limitations History of Present Illness HPI narrative: Patient presents for evaluation of raised lesion adjacent to her ear. She indicates she noted a small bump to the affected area many months ago. A week ago, she noted that the bump increase in size. She denies any fever, chills, nausea, vomiting, drainage from the affected area. She states that she has mild pain that she rates 2/10 severity in the area. She is not taking any medication to assist with her symptoms. She is not diabetic. Related Data Home Medications ?Medication ?Instructions ?Recorded ?Confirmed ?Last Taken ?Type phenytoin sodium extended 100 mg 400 mg PO DAILY 01/17/20 03/08/24 Unknown History capsule (Dilantin Extended) Allergies Allergy/AdvReac Type Severity Reaction Status Date / Time erythromycin base Allergy Unknown Unknown Verified 08/20/25 12:39 Sulfa (Sulfonamide Allergy Unknown Unknown Verified 08/20/25 12:39 Antibiotics) Review of Systems Review of Systems: CONSTITUTIONAL: Denies fever, chills, or sweats. EYES: Denies visual changes, redness, or discharge. ENT: Denies rhinorrhea, congestion, sore throat, or otalgia. CARDIOVASCULAR: Denies chest pain, palpitations, or edema. RESPIRATORY: Denies cough or dyspnea. GASTROINTESTINAL: Denies abdominal pain, nausea, vomiting, or diarrhea. GENITOURINARY: Denies dysuria or hematuria. SKIN: Approximately 5 mm raised pustule noted to the skin adjacent to the helix of the left ear. MUSCULOSKELETAL: Denies back pain, joint pain, or myalgia. NEUROLOGIC: Denies headache, numbness, dizziness, or weakness. PSYCHIATRIC: Denies anxiety or depression. [facility] Past Medical History Medical History Tobacco abuse Pneumonia Wheezing Seizure Surgical History Surgical History Tubal ligation status H/O removal of cyst left wrist No pertinent past surgical history Family History Family History Other No acute medical problems Social History Social History Smoking packs per day: 0.5 Smoking cigarettes per day: 10.0 Years smoked: 35 Smoking pack-years: 17.50 Smoking status: Current every day smoker Tobacco type: cigarettes Alcohol intake: former Alcohol use details: rare social Substance use type: does not use Living arrangements: with family Gender identity (if verbalized by the patient): Female Spiritual care concerns: No Course Course Emergency Course: This is a 55-year-old female presented for evaluation of a raised pustule to the skin adjacent to the helix of the left ear. Incision and drainage performed. This is infected sebaceous cyst. Wound culture was obtained. Likely organisms would be MRSA versus Pseudomonas based upon anatomical location of lesion. Will discharge with doxycycline and Levaquin. Increase hydration. Follow up with primary care provider. Also follow-up with general surgery to have cyst excised at the completion of antibiotics. Go to the emergency department for worsening symptoms. Patient in agreement with plan of care. Level of Care: Express Care Visit Vital Signs Vital signs: Vital Signs Temperature 36.7 C 08/20/25 12:35 Pulse Rate 81 08/20/25 12:35 Respiratory Rate 18 08/20/25 12:35 Blood Pressure 96/69 L 08/20/25 12:35 Pulse Oximetry 98 08/20/25 12:35 Oxygen Delivery Room Air 08/20/25 12:35 Temperature 36.7 C 08/20/25 12:35 Pulse Rate 81 08/20/25 12:35 Respiratory Rate 18 08/20/25 12:35 Blood Pressure 96/69 L 08/20/25 12:35 Pulse Oximetry 98 08/20/25 12:35 Oxygen Delivery Room Air 08/20/25 12:35 Procedures Abscess I/D other: Date of Incision: 08/20/25 Time of Incision: 14:01 Side (if applicable): left Sedation/analgesia: none Local Anesthetic: none Technique: needle aspiration Amount of fluid expressed (mL): 5 I&D Results: Pus and Blood (Sebaceous material) Medical Decision Making Vital Signs Vital Signs: Vital Signs Temperature 36.7 C 08/20/25 12:35 Pulse Rate 81 08/20/25 12:35 Respiratory Rate 18 08/20/25 12:35 Blood Pressure 96/69 L 08/20/25 12:35 Pulse Oximetry 98 08/20/25 12:35 Oxygen Delivery Room Air 08/20/25 12:35 Temperature 36.7 C 08/20/25 12:35 Pulse Rate 81 08/20/25 12:35 Respiratory Rate 18 08/20/25 12:35 Blood Pressure 96/69 L 08/20/25 12:35 Pulse Oximetry 98 08/20/25 12:35 Oxygen Delivery Room Air 08/20/25 12:35 Discharge Plan Discharge Clinical Impression: Infected sebaceous cyst Patient Disposition: Home Condition: Stable Instructions: Antibiotic Form, Abscess (ED), Epidermal Inclusion Cysts (ED), Abscess Incision and Drainage (DC) Additional Instructions: Please do not manipulate or squeeze the affected area Please follow-up with general surgery for cyst excision after completion of antibiotics Patient Language: Romanian Prescriptions: New levofloxacin 750 mg tablet 750 mg PO DAILY Qty: 10 0RF doxycycline hyclate 100 mg capsule 100 mg PO BID 10 Days Qty: 20 0RF No Action phenytoin sodium extended [Dilantin Extended] 100 mg Capsule 400 mg PO DAILY Follow-up/Referrals: Rubio,Newton Muñoz MD [Primary Care Provider, Unknown] Tonny Espinal DO [Physician, General Surgery] Time of Disposition: 13:56
--- OUTSIDE RECORDS SUMMARY | 2025-08-20 15:04 | XMS_ITS | Clinical Summary ---
Author Organization [facility] Address [address] [place] [address] Care Team Providers Care Wastewater Treatment Plant Operator Name Role Phone Trudy Tam MD Primary Care Provider [phone] [phone] Source Comments [facility],non-owned Affiliates and Associated Physician Practices is amultiple site organization consisting of ambulatory clinics and hospital sitesin [place], [place], [place] and [place]. This disclosure is being madepursuant to the Care Everywhere program and may not contain all information available regarding this patient. 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 Gender Identity Not on file Sexual Orientation [...] 10:58 AM CDT Height 170.2 cm (5' 7) 02/16/2018 10:58 AM CDT Body Mass Index [...] SCREENING 1970 LIPID TESTING 1970 MAMMOGRAM 1970 HIV SCREENING 1985 HEPATITIS C SCREENING 03/26/1988 DTAP/TDAP/TD VACCINES (1 - Tdap) 1989 HEPATITIS B VACCINE (1 of 3 - 19+ 3-dose series) 1989 PNEUMOCOCCAL VACCINE 50+ (1 of 2 - PCV) 1989 PAP SMEAR 1991 ZOSTER VACCINE (1 of 2) 2020 DEPRESSION SCREENING 10/31/2024 COVID-19 VACCINE (1 - 2023-2 5 season) 2025 INFLUENZA VACCINE (#1) 2025 HIB VACCINE Aged Out No longer [...] age to complete this topic Care Teams Wastewater Treatment Plant Operator Relationship Specialty Start Date End Date Trudy Tam MD [facility] - General 02/09/16
--- OUTSIDE RECORDS SUMMARY | 2025-08-20 15:04 | XMS_ITS | Encounter Summary ---
Author Organization [facility] Address [address] [place] [address] Phone Care Team Providers Care Hot Man Name Role Phone Newton Bergeron MD Primary Care Provider +1 [phone] Katheryn Sawyer APRN, FLIGHT DIRECTOR Unavailable +1- [phone] Reason for Visit * Reason Comments Medication Refill Encounter Details Date Type Department Care Team (Late st Contact Info) Description 05/31/2025 Refill [facility] - Neurology - [place] [address] [place] [address] Katheryn Sawyer APRN, FLIGHT DIRECTOR [address] [place] [address] Medication Refill Social History Tobacco Use Types Packs/Day Years Used Date Smoking Tobacco: Every Day Cigarettes Passive Smoke Exposure: Current Smokeless Tobacco: Never Alcohol Use Standard Drinks/Week Comments No 0 (1 standard drink = 0.6 oz pur e alcohol) [facility] Utilities Answer Date Recorded In the past 12 months has [employer], gas, oil, or water [employer] threatened to shut off services in your home? No 01/12/2024 Social Connection and Isolation Panel Answer Date Recorded In a typical week, how many times do you talk on the phone with family, friends, or neighbors? More than three times a week 01/12/2024 How often do you get togethe r with friends or relatives? More than three times a week 01/12/2024 How often do you attend chur ch or protestant services? Never 01/12/2024 Do you belong to any clubs o r organizations such as anabaptist groups, unions, fraternal or athletic groups, or [...] Total Score - Questions 1-9 0 12/29 [facility] Occupat ional Health - Occupational Stress [...] place to sleep or slept in a halfway (including now)? No 01/12/2024 Education Answer Date [...] as of this encounter Plan of Treatment Upcoming Encounters Date Type Department Care Team (Late st Contact Info) Description 09/19/2025 2:20 PM WELT STITCHER Office Visit [facility] - Primary Care - [place] [address] [place] [address] Newton Bergeron MD [address] [place] [address] documented as of this encounter Visit Diagnoses Not on filedocumented in this encounter Additional Health Concerns Assessment Noted Time PHQ-9 Depression Total Score: 0 01/12/20 24 9:12 AM CDT documented as of this encounter Care Teams Hot Man Relationship Specialty Start Date End Date Newton Bergeron MD PCP - General Internal Medicine 06/17/21 Katheryn Sawyer, MANAGER INFORMATION, FLIGHT DIRECTOR [address] [place] [address] Nurse Practitioner Advanced Practice Nurse 11/16/23 documented as of this encounter
--- OUTSIDE RECORDS SUMMARY | 2025-08-20 15:04 | XMS_ITS | Encounter Summary ---
Author Organization [facility] Address [address] [place], [place] [address] [address] Care Team Providers Care Safety Associate Name Role Phone Trudy Tam MD Primary Care Provider [phone] [phone] Encounter Details Date Type Department Care Team (Late st Contact Info) Description 10/22/2019 Telephone [facility] [address] [place] [address] Evelin King MD [address] [place] [address] Social History Tobacco Use Types Packs/Day Years Used Date Smoking Tobacco: Some Days Cigarettes Smokeless Tobacco: Never Alcohol Use Standard Drinks/Week Comments Yes 0 (1 standard drink = 0.6 oz pur e alcohol) VERY SELDOM USE Comments No Sex and Gender Information Value Date Recorded Sex Assigned at Not on file Legal Sex Female 5:24 PM STEAM BOX HAND Gender Identity Not on file Sexual Orientation Not on file documented as of this encounter Plan of Treatment Not on file documented as of this encounter Visit Diagnoses Not on filedocumented in this encounter Care Teams Safety Associate Relationship Specialty Start Date End Date Trudy Tam MD PCP - General 02/09/16 documented as of this encounter
--- OUTSIDE RECORDS SUMMARY | 2025-08-20 15:04 | XMS_ITS | Encounter Summary ---
Author Organization [facility] Address [address] [place] [address] Phone Care Team Providers Care Sighter Name Role Phone Newton Bergeron MD Primary Care Provider +1 [phone] Katheryn Sawyer APRN, HOISTER Unavailable Reason for Visit * Reason Comments Medication Refill Encounter Details Date Type Department Care Team (Late st Contact Info) Description 08/02/2025 Refill [facility] - Neurology - [place] [address] [place] [address] Katheryn Sawyer APRN, HOISTER [address] [place] [address] Medication Refill Social History Tobacco Use Types Packs/Day Years Used Date Smoking Tobacco: Every Day Cigarettes Passive Smoke Exposure: Current Smokeless Tobacco: Never Alcohol Use Standard Drinks/Week Comments No 0 (1 standard drink = 0.6 oz pur e alcohol) [facility] Utilities Answer Date Recorded In the past 12 months has [employer], gas, oil, or water [employer] threatened to shut off services in your [...] often do you attend chur ch or lutheran services? Never 01/12/2024 Do you belong to any clubs o r organizations such as gnosticist groups, unions, fraternal or athletic groups, or [...] Total Score - Questions 1-9 0 12/29 [facility] of Occupat ional Health - Occupational Stress [...] place to sleep or slept in a senior care (including now)? No 01/12/2024 Education Answer Date [...] st Contact Info) Description 09/19/2025 2:20 PM REHAB TECH Office Visit [facility] - Primary Care - [place] [address] [place] [address] Newton Bergeron MD [address] [place] [address] documented as of this encounter Visit Diagnoses Not on filedocumented in this encounter Additional Health Concerns Assessment Noted Time PHQ-9 Depression Total Score: 0 01/12/20 24 9:12 AM CDT documented as of this encounter Care Teams Sighter Relationship Specialty Start Date End Date Newton Bergeron MD PCP - General Internal Medicine 06/17/21 Katheryn Sawyer, MOBILE LOUNGE DRIVER, HOISTER [address] [place] [address] Nurse Practitioner Advanced Practice Nurse 11/16/23 documented as of this encounter
--- OUTSIDE RECORDS SUMMARY | 2025-08-20 15:04 | XMS_ITS | Clinical Summary ---
Author Organization [facility] Address [address] [place] [address] Care Team Providers Care Insurance Follow Up Specialist Name Role Phone Newton Bergeron MD Primary Care Provider [phone]- [phone] Allergies Active Allergy Reactions Criticality Noted Date [...] 11/08/2023 Assessment & Plan (11/08/2023 3:41 PM LEASE OPERATOR): Hearing test Mild to moderate hearing loss, [...] on file Legal Sex Female 11:51 PM LEASE OPERATOR Gender Identity Not on file Sexual Orientation Not on file Obstetrics History Last Filed Vital Signs Vital Sign Reading Time Taken Comments Blood Pressure 104/64 11/07/2023 10:38 AM LEASE OPERATOR Pulse 80 11/07/2023 10:38 AM LEASE OPERATOR Temperature 36.4 C (97.6 F) 11/07/2023 10:38 AM LEASE OPERATOR Respiratory Rate 16 12/27/2022 12:09 PM LEASE OPERATOR Oxygen Saturation 99% 11/07/2023 10:38 AM LEASE OPERATOR Inhaled Oxygen Concentration - - Weight 50.4 kg (111 lb 1.6 oz) 11/07/2023 10:38 AM LEASE OPERATOR Height 170.2 cm (5' 7.01) 11/07/2023 10:[address] Body Mass Index 17.4 11/07/2023 10:38 AM LEASE OPERATOR Plan of Treatment Health Maintenance Due Date Last Done Comments Cervical Cancer Screening 1970 Colon Cancer Screening-Colonoscopy 1970 Depression Screening 1970 Hepatitis C Screening 1970 Hepatitis B Screening 1988 Regular Well Visit/Exam 18-64 1988 Pneumococcal vaccine <65 (1 of 2 - PCV) 1989 Zoster Vaccine (1 of 2) 2020 Breast Cancer Screening-Mammogram 10/29/2022 021 DTaP/Tdap/Td Vaccine (3 - Td or Tdap) 04/21/2025, 10/31/2002 Influenza Vaccine (#1) 2025 Insurance [employer] [place] [employer] Care Teams Insurance Follow Up Specialist Relationship Specialty Start Date End Date Newton Bergeron MD [address] [place] [address] PCP - General 06/27/22
--- OUTSIDE RECORDS SUMMARY | 2025-08-20 15:04 | XMS_ITS | Clinical Summary ---
Author Organization [facility] [address] [facility] [place] [address] Phone Care Team Providers Care Parts Facilitator Name Role Phone Newton Bergeron MD Primary Care Provider Katheryn Sawyer APRN, AUTOMOTIVE BRAKE SPECIALIST Unavailable [phone]- [phone] Allergies Active Allergy Reactions Criticality Noted Date Comments Erythromycin Unknown 05/27/2017 Sulfa Antibiotics Unknown 04/03/2016 Medications Multiple Vitamin (MULTIVITAMIN PO) Take by mouth. Active phenytoin (DILANTIN) 100 MG ER capsule Take 4 Capsules by mouth nightly. 120 Capsule 1 5 Active phenytoin (DILANTIN) 100 MG ER capsule Take 4 Capsules by mouth nightly. 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 Resolved Problems Problem Noted Date Diagnosed Date Resolved Date GERD without esophagitis 09/15/2021 Primary insomnia 06/05/2021 07/14/2023 Encounters Date Type Department Care Team Description 08/08[facility] [place] [address] [place] [address] Newton Bergeron MD 08/[facility] [place] [address] [place] [phone] Newton Bergeron MD Medication Refill 08/02/2025 Telephone [facility] Neurology - [place] [address] [facility] [place] [phone] Ruslan Huerta MD 08/02/20[facility] [address] [facility] [place] [phone] Katheryn Sawyer, CLINICAL DATA ASSISTANT, AUTOMOTIVE BRAKE SPECIALIST Medication Refill 06/03/2025 Refill [facility] [address] [facility] [place] [phone] Katheryn Sawyer, CLINICAL DATA ASSISTANT, AUTOMOTIVE BRAKE SPECIALIST Medication Refill 05/31/2025 [facility] [address] [place] [phone] Katheryn Sawyer, CLINICAL DATA ASSISTANT, AUTOMOTIVE BRAKE SPECIALIST 05/31/2025 [facility] [address] [facility] [place] [phone] Katheryn Sawyer, CLINICAL DATA ASSISTANT, AUTOMOTIVE BRAKE SPECIALIST Medication Refill from Last 3 Months Family History Medical [...] drink = 0.6 oz pur e alcohol) [facility] Utilities Answer Date Recorded In the past 12 months has [employer], gas, oil, or water [employer] threatened to shut off services in your [...] often do you attend chur ch or spiritism services? Never 01/12/2024 Do you belong to any clubs o r organizations such as denominational groups, unions, fraternal or athletic groups, or [...] Total Score - Questions 1-9 0 12/29 [facility] of Occupat ional Health - Occupational Stress [...] place to sleep or slept in a intermediate (including now)? 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 Oxygen Saturation 98% 01/12/2024 9:08 AM CDT Inhaled Oxygen Concentration - - Weight 52.2 kg (115 lb) 01/12/2024 9:08 AM CDT Height 170.2 cm (5' 7) 01/12/2024 9:08 AM CDT Body Mass Index 18.01 01/12/2024 9:08 AM CDT Plan of Treatment Upcoming Encounters Date Type Department Care Team (Late st Contact Info) Description 09/19/2025 2:20 PM PLANT MAINTENANCE WORKER Office Visit [facility] - Primary Care - [place] [address] [place] [address] Newton Bergeron MD [address] [place] [address] Health Maintenance Due Date Last Done Comments Hepatitis C Virus (HCV) Screening 1970 Hepatitis B Immunization (1 of 3 - 19+ 3-dose series) 1989 Pneumococcal Immunization (5 0+ years) (1 of 2 - PCV) 1989 Pap Smear 1991 Cervical Cancer Screening (CCS) 2000 HPV/Cotest 2000 Cologuard 2015 Colonoscopy 2015 Colorectal Cancer Screening 2015 Immunochemical Fecal Occult Blood 2015 Zoster Immunization (1 of 2) 2020 Mammogram 01/31/2025 02/01/2024, 10/29/2021 SARS-COV-2 Immunization (1 - season) 2025 Respiratory Syncytial Virus (RSV) Immunization (Adult) (1 [...] Comparison is made to exam dated: 10/29/2021 [facility]. BREAST TISSUE:The tissue of both breasts is [...] exam. Electronically signed by: Fitz dillon/rojas:02/01/2024 13:32:04 Chainstitch Seat Joiner(s): RT Myriam(R)(M), [facility] letter sent: Normal Exam Reading location: [facility] BI-RADS: 1 Negative Procedure Note Fitz James [...] Comparison is made to exam dated: 10/29/2021 [facility]. BREAST TISSUE:The tissue of both breasts is [...] exam. Electronically signed by: Fitz dillon/rojas:02/01/2024 13:32:04 Chainstitch Seat Joiner(s): RT Myriam(R)(M), [facility] letter sent: Normal Exam Reading location: [facility] BI-RADS: 1 Negative us Newton Bergeron MD IMG MAMMO ORDERABLES Final Result from Last 3 Months or Most Recently Relevant to Health Maintenance Care Teams Parts Facilitator Relationship Specialty Start Date End Date Newton Bergeron MD PCP - General Internal Medicine 06/17/21 Katheryn Sawyer, CLINICAL DATA ASSISTANT, AUTOMOTIVE BRAKE SPECIALIST [address] [place] [address] Nurse Practitioner Advanced Practice Nurse 11/16/23
--- OUTSIDE RECORDS SUMMARY | 2025-08-20 15:04 | XMS_ITS | Encounter Summary ---
Author Organization [facility] Address [address] [place] [address] Phone Care Team Providers Care Assessment Services Manager Name Role Phone Newton Bergeron MD Primary Care Provider [phone] Katheryn Sawyer APRN, CALL CENTER COORDINATOR Unavailable [phone]- [phone] Reason for Visit * Reason Comments Medication Refill Encounter Details Date Type Department Care Team (Late st Contact Info) Description 03/15/2024 Refill [facility] - Neurology - [place] [address] [place] [address] Katheryn Sawyer APRN, CALL CENTER COORDINATOR [address] [place] [address] Medication Refill Social History Tobacco Use Types Packs/Day Years Used Date Smoking Tobacco: Every Day Cigarettes Passive Smoke Exposure: Current Smokeless Tobacco: Never Alcohol Use Standard Drinks/Week Comments No 0 (1 standard drink = 0.6 oz pur e alcohol) [facility] Utilities Answer Date Recorded In the past 12 months has [employer], gas, oil, or water [employer] threatened to shut off services in your [...] often do you attend chur ch or restorationist services? Never 01/12/2024 Do you belong to any clubs o r organizations such as christian groups, unions, fraternal or athletic groups, or [...] Total Score - Questions 1-9 0 12/29 [facility] of Occupat ional Health - Occupational Stress [...] place to sleep or slept in a fci (including now)? No 01/12/2024 Education Answer Date [...] [place] 11/16/23 Office Visit Katheryn Sawyer APRN, CALL CENTER COORDINATOR [facility] 07/14/23 [facility] [place] Show[facility] recent visits within past 365 days and meeting all other requirements Future Appointments Date Type Provider Dept 05/17/24 Appointment Katheryn Sawyer APRN, CALL CENTER COORDINATOR [facility] [place] [facility] Showing future appointments within next 90 days and meeting all other requirements documented in this encounter Plan of Treatment Upcoming Encounters Date Type Department Care Team (Late st Contact Info) Description 09/19/2025 2:20 PM 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 OPERATOR Office Visit [facility] - Primary Care - [place] [address] [place] [address] Newton Bergeron MD [address] [place] [address] documented as of this encounter Visit Diagnoses Not on filedocumented in this encounter Additional Health Concerns Assessment Noted Time PHQ-9 Depression Total Score: 0 01/12/20 24 9:12 AM CDT documented as of this encounter Care Teams Assessment Services Manager Relationship Specialty Start Date End Date Newton Bergeron MD PCP - General Internal Medicine 06/17/21 Katheryn Sawyer APRN, CALL CENTER COORDINATOR [address] [place] [address] Nurse Practitioner Advanced Practice Nurse 11/16/23 documented as of this encounter
--- OUTSIDE RECORDS SUMMARY | 2025-08-20 15:04 | XMS_ITS | Clinical Summary ---
Author Organization [facility] Address [address] [place] [id number] Care Team Providers Care Adjunct Instructor Of Women'S Studies Name Role Phone Unavailable Primary Care Provider Unavailabl e Social History Tobacco Use Types Packs/Day Years Used Date Smoking Tobacco: Never Assessed Comments Unknown Sex and Gender Information Value Date Recorded Sex Assigned at Not on file Legal Sex Female 8:22 PM CDT Gender Identity Not on file Sexual Orientation Not on file Plan of Treatment Health Maintenance Due Date Last Done Comments Cervical Cancer Screening Pa p Smear (Age 30 to 64) Every 3 Years 1970 Colorectal Cancer Screening Colonoscopy (10 Years) 1970 Annual Physical 1973 Hepatitis C 1988 DTaP, Tdap and Td Vaccines ( 1 - Tdap) 1989 Hepatitis B Vaccines (1 of 3 - 19+ 3-dose series) 1989 Cervical Cancer Screening Pa p with HPV Testing (Age 30 to 64) Every 5 Years 2000 Cervical Cancer Screening with HPV 2000 Mammogram Screening 2010 Pneumococcal Vaccine: 50+ Ye ars (1 of 1 - PCV) 2020 Zoster Vaccines (1 of 2) 2020 COVID-19 Vaccine (1 - 2023-2 5 season) 2025 Influenza Adult (#1) 2025 Hepatitis A Vaccines Aged Out No long er eligible based on patient's age to complete this topic Meningococcal B Vaccine Aged Out No l onger eligible based on patient's age to complete this topic Meningococcal Vaccine Aged Out No camron maria eligible based on patient's age to complete this topic RSV Immunizations Under 20 Months Aged Out No longer eligible based on patient's age to complete this topic
== END 2025-08-20 13:59 | disposition home or self-care (01) ==
PROVIDERS: Emergency Provider Nurse Practitioner; PCP Internal Medicine
DX: L72.3 Sebaceous cyst (principal); F17.210 Nicotine dependence, cigarettes, uncomplicated
CPT/HCPCS: 10060; 87070; 87075; 99213; G0463